=== PATIENT | male | born 1955 | race Caucasian/White ===

== ENCOUNTER → 2023-07-23 11:02 | Outpatient (REF) | payer MEDICARE, OTHER, SELFPAY ==
[2023-07-23 12:12] LABS: % Basophils 0.5 % (0-2); % Eosinophils 1.6 % (0-6); % Immature Granulocytes 0.3 % (0-0.5); % Lymphocytes 21.1 % (20.5-51.1); % Monocytes 9.6 % (1.7-9.3); % Neutrophils 66.9 % (42.2-75.2); Absolute Eosinophils 0.1 10^3/uL (0-0.7); Absolute Lymphocytes 1.3 10^3/uL (1.2-3.4); Absolute Monocytes 0.6 10^3/uL (0.1-0.6); Absolute Neutrophils 4.3 10^3/uL (1.4-6.5); Hematocrit 43.4 % (39.0-52.0); Hemoglobin 14.5 g/dL (13.0-18.0); Mean Corp Hgb Conc. 33.4 g/dL (33.0-37.0); Mean Corpuscular Volume 89.7 fL (80.0-94.0); Mean Platelet Volume 10.1 fL (7.4-10.4); Nucleated Red Blood Cells % 0 % (-); Platelet Count 192 10^3/uL (130-400); Red Blood Cell Count 4.84 10^6/uL (4.70-6.10); Red Cell Dist. Width 12.5 % (11.5-14.5); White Blood Cell Count 6.4 10^3/uL (4.8-10.8)
== END ==
LOC: REG 11:02
DX: K62.5 Hemorrhage of anus and rectum (principal)
CPT/HCPCS: 36415; 85025

== ENCOUNTER → 2023-09-03 06:29 | Day surgery (SDC) | payer MEDICARE, OTHER, SELFPAY | LOC: GI 06:29 | PROVIDERS: ATTENDING PHYSICIAN Internal Medicine Gastroenterology | DX: Z12.11 Encounter for screening for malignant neoplasm of colon (principal); K57.30 Diverticulosis of large intestine without perforation or abscess without bleeding; K83.01 Primary sclerosing cholangitis; K52.3 Indeterminate colitis; K64.0 First degree hemorrhoids; K63.89 Other specified diseases of intestine; K62.6 Ulcer of anus and rectum; K63.5 Polyp of colon; K51.40 Inflammatory polyps of colon without complications; K51.818 Other ulcerative colitis with other complication | CPT/HCPCS: 45385; 45380; 45381; 88305; 88341; 88342 ==

== ENCOUNTER → 2023-09-24 10:37 | Outpatient (REF) | payer MEDICARE, OTHER, SELFPAY ==
[2023-09-26 04:47] LABS: Calprotectin, Fecal 123 ug/g (<=49)
== END ==
LOC: REG 10:37
PROVIDERS: ATTENDING PHYSICIAN Internal Medicine Gastroenterology; FAMILY PHYSICIAN Nurse Practitioner Primary Care
DX: K51.90 Ulcerative colitis, unspecified, without complications (principal)
CPT/HCPCS: 83993

== ENCOUNTER → 2023-10-30 12:21 | Outpatient (REF) | payer MEDICARE, OTHER, SELFPAY | LOC: RAD 12:21 | PROVIDERS: ATTENDING PHYSICIAN Surgery Vascular Surgery; FAMILY PHYSICIAN Nurse Practitioner Primary Care | DX: I73.9 Peripheral vascular disease, unspecified (principal) | CPT/HCPCS: 93922; 93925; 93978 ==

== ENCOUNTER → 2023-12-02 10:38 | Outpatient (REF) | payer MEDICARE, OTHER, SELFPAY | LOC: PAVMRI 10:38 | PROVIDERS: ATTENDING PHYSICIAN Internal Medicine Gastroenterology; FAMILY PHYSICIAN Nurse Practitioner Primary Care | DX: K83.01 Primary sclerosing cholangitis (principal) | CPT/HCPCS: 74183; A9575 ==

== ENCOUNTER → 2023-12-11 11:00 | Outpatient (REF) | payer MEDICARE, OTHER, SELFPAY ==
[2023-12-11 12:20] LABS: % Basophils 0.5 % (0-2); % Eosinophils 1.1 % (0-6); % Immature Granulocytes 0.2 % (0-0.5); % Lymphocytes 17.1 % (20.5-51.1); % Monocytes 7.4 % (1.7-9.3); % Neutrophils 73.7 % (42.2-75.2); Absolute Eosinophils 0.1 10^3/uL (0-0.7); Absolute Lymphocytes 1.1 10^3/uL (1.2-3.4); Absolute Monocytes 0.5 10^3/uL (0.1-0.6); Absolute Neutrophils 4.7 10^3/uL (1.4-6.5); Hematocrit 47.3 % (39.0-52.0); Hemoglobin 16.1 g/dL (13.0-18.0); Mean Corpuscular Hgb 30.8 pg (27.0-31.0); Mean Corpuscular Volume 90.4 fL (80.0-94.0); Mean Platelet Volume 10.5 fL (7.4-10.4); Nucleated Red Blood Cells % 0 % (-); Platelet Count 224 10^3/uL (130-400); Red Blood Cell Count 5.23 10^6/uL (4.70-6.10); Red Cell Dist. Width 12.6 % (11.5-14.5); White Blood Cell Count 6.4 10^3/uL (4.8-10.8)
[2023-12-11 12:56] LABS: ALT (SGPT) 83 U/L (0-50); AST (SGOT) 68 U/L (17-59); Albumin 4.6 g/dl (3.5-5.0); Alkaline Phosphatase 246 U/L (38-126); Blood Urea Nitrogen 18 mg/dl (9-20); Calcium 9.7 mg/dl (8.4-10.2); Carbon Dioxide 21 mmol/L (22-30); Chloride 102 mmol/L (98-107); Direct Bilirubin 0.4 mg/dl (0.0-0.4); Glucose 86 mg/dl (70-99); HDL Cholesterol 71 mg/dl; LDL Cholesterol, Calculated 146 mg/dl; Potassium 4.7 mmol/L (3.5-5.1); Sodium 141 mmol/L (135-145); Total Bilirubin 1.1 mg/dl (0.2-1.3); Total Cholesterol 228 mg/dl (50-199); Total Protein 7.5 g/dl (6.3-8.2); Triglyceride 57 mg/dl (10-149); Very Low Density Lipoprotein 11 mg/dl (0-30); eGFR > 60.00
[2023-12-11 13:23] LABS: PSA, Total - Screen 3.39 ng/ml (0.0-4.0); TSH Reflex To Free T4 1.56 uIU/ml (0.47-4.68)
[2023-12-11 13:43] LABS: Vitamin B12 373 pg/ml (239-931)
[2023-12-11 14:06] LABS: Glycohemoglobin (HgbA1c) 5.4 % (4.0-5.6)
== END ==
LOC: REG 11:00
PROVIDERS: ATTENDING PHYSICIAN Internal Medicine Gastroenterology; FAMILY PHYSICIAN Nurse Practitioner Primary Care
DX: K51.90 Ulcerative colitis, unspecified, without complications (principal); I10 Essential (primary) hypertension; E78.2 Mixed hyperlipidemia; R73.03 Prediabetes; E53.8 Deficiency of other specified B group vitamins; Z12.5 Encounter for screening for malignant neoplasm of prostate; E03.8 Other specified hypothyroidism; E55.9 Vitamin D deficiency, unspecified
CPT/HCPCS: 36415; 80053; 80061; 82248; 82306; 82607; 83036; 84443; 85025; G0103

== ENCOUNTER → 2023-12-22 10:39 | Outpatient (REF) | payer MEDICARE, OTHER, SELFPAY ==
[2023-12-24 10:29] LABS: Calprotectin, Fecal 44 ug/g (<=49)
== END ==
LOC: REG 10:39
PROVIDERS: ATTENDING PHYSICIAN Internal Medicine Gastroenterology; FAMILY PHYSICIAN Nurse Practitioner Primary Care
DX: K51.90 Ulcerative colitis, unspecified, without complications (principal)
CPT/HCPCS: 83993

== ENCOUNTER → 2023-12-29 06:23 | Day surgery (SDC) | payer MEDICARE, OTHER, SELFPAY | LOC: GI 06:23 | PROVIDERS: ATTENDING PHYSICIAN Internal Medicine Gastroenterology | DX: Z12.11 Encounter for screening for malignant neoplasm of colon (principal); K51.20 Ulcerative (chronic) proctitis without complications; K62.89 Other specified diseases of anus and rectum; K62.1 Rectal polyp; K64.0 First degree hemorrhoids | CPT/HCPCS: 45331; 88305 ==

== ENCOUNTER → 2024-02-18 10:14 | Outpatient (REF) | payer MEDICARE, OTHER, SELFPAY | LOC: RAD 10:14 | PROVIDERS: ATTENDING PHYSICIAN Internal Medicine Gastroenterology | DX: R19.5 Other fecal abnormalities (principal) | CPT/HCPCS: 74022 ==

== ENCOUNTER → 2024-05-27 09:45 | Outpatient (REF) | payer MEDICARE, OTHER, SELFPAY ==
[2024-05-27 12:51] LABS: Urine Albumin 1+ (Neg - Trace); Urine Bilirubin Negative (Negative); Urine Character Cloudy (Clear); Urine Color Yellow; Urine Glucose Negative (Negative); Urine Ketone Negative (Negative); Urine Leukocyte Negative (Negative); Urine Nitrite Negative (Negative); Urine Occult Blood 3+ (Negative); Urine Urobilinogen 1+ (Neg - 1+)
[2024-05-27 13:05] LABS: Urine Bacteria Many (Negative); Urine Squamous Cell 0-2 /LPF (Few)
[2024-05-27 13:06] LABS: Urine White Cell 0-2 /HPF (0-5)
== END ==
LOC: CLAB 09:45
PROVIDERS: ATTENDING PHYSICIAN Nurse Practitioner Primary Care
DX: N50.811 Right testicular pain (principal)
CPT/HCPCS: 81003; 81015; 87086

== ENCOUNTER → 2024-05-28 10:07 | Outpatient (REF) | payer MEDICARE, OTHER, SELFPAY ==
[2024-05-28 11:22] LABS: ALT (SGPT) 46 U/L (0-50); AST (SGOT) 40 U/L (17-59); Albumin 4.2 g/dl (3.5-5.0); Alkaline Phosphatase 226 U/L (38-126); Direct Bilirubin 0.2 mg/dl (0.0-0.4); HDL Cholesterol 78 mg/dl; LDL Cholesterol, Calculated 130 mg/dl; Total Bilirubin 0.9 mg/dl (0.2-1.3); Total Cholesterol 219 mg/dl (50-199); Triglyceride 58 mg/dl (10-149); Very Low Density Lipoprotein 11 mg/dl (0-30)
== END ==
LOC: REG 10:07
PROVIDERS: ATTENDING PHYSICIAN Nurse Practitioner Primary Care
DX: N50.811 Right testicular pain (principal); E78.2 Mixed hyperlipidemia; K83.01 Primary sclerosing cholangitis
CPT/HCPCS: 36415; 80061; 80076; 87086; 87491; 87591

== ENCOUNTER 2024-06-07 06:21 | Day surgery (SDC) | payer MEDICARE, OTHER, SELFPAY | END 2024-06-07 11:40 | disposition home or self-care (01) | LOC: GI 06:21 | PROVIDERS: ATTENDING PHYSICIAN Internal Medicine Gastroenterology | DX: Z12.11 Encounter for screening for malignant neoplasm of colon (principal); D12.3 Benign neoplasm of transverse colon; K63.5 Polyp of colon; K51.00 Ulcerative (chronic) pancolitis without complications; K63.89 Other specified diseases of intestine; K57.30 Diverticulosis of large intestine without perforation or abscess without bleeding; K62.89 Other specified diseases of anus and rectum; K64.0 First degree hemorrhoids | CPT/HCPCS: 45385; 45380; 45381; 88305 ==

== ENCOUNTER → 2024-06-08 10:31 | Outpatient (REF) | payer MEDICARE, OTHER, SELFPAY | LOC: HWRAD 10:31 | PROVIDERS: ATTENDING PHYSICIAN Nurse Practitioner Primary Care | DX: R31.29 Other microscopic hematuria (principal); N50.811 Right testicular pain | CPT/HCPCS: 76770; 76870; 93976 ==

== ENCOUNTER → 2024-06-16 08:45 | Outpatient (REF) | payer MEDICARE, OTHER, SELFPAY ==
[2024-06-16 10:19] LABS: Hematocrit 43.2 % (39.0-52.0); Hemoglobin 14.3 g/dL (13.0-18.0); Mean Corp Hgb Conc. 33.1 g/dL (33.0-37.0); Mean Corpuscular Hgb 30.4 pg (27.0-31.0); Mean Corpuscular Volume 91.9 fL (80.0-94.0); Platelet Count 226 10^3/uL (130-400); Red Cell Dist. Width 13.2 % (11.5-14.5); White Blood Cell Count 5.7 10^3/uL (4.8-10.8)
[2024-06-16 11:02] LABS: ALT (SGPT) 36 U/L (0-50); AST (SGOT) 34 U/L (17-59); Albumin 4.3 g/dl (3.5-5.0); Alkaline Phosphatase 181 U/L (38-126); Blood Urea Nitrogen 19 mg/dl (9-20); Calcium 9.1 mg/dl (8.4-10.2); Carbon Dioxide 27 mmol/L (22-30); Chloride 104 mmol/L (98-107); Direct Bilirubin 0.2 mg/dl (0.0-0.4); Glucose 88 mg/dl (70-99); Sodium 138 mmol/L (135-145); Total Bilirubin 0.8 mg/dl (0.2-1.3); eGFR > 60.00
== END ==
LOC: REG 08:45
PROVIDERS: ATTENDING PHYSICIAN Internal Medicine Gastroenterology; FAMILY PHYSICIAN Nurse Practitioner Primary Care
DX: K51.90 Ulcerative colitis, unspecified, without complications (principal)
CPT/HCPCS: 36415; 80053; 82248; 85027; 86140

== ENCOUNTER → 2024-08-18 10:35 | Outpatient (REF) | payer MEDICARE, OTHER, SELFPAY ==
[2024-08-18 11:57] LABS: % Basophils 0.4 % (0-2); % Eosinophils 1.3 % (0-6); % Immature Granulocytes 0.4 % (0-0.5); % Lymphocytes 21.5 % (20.5-51.1); % Monocytes 7.1 % (1.7-9.3); % Neutrophils 69.3 % (42.2-75.2); Absolute Eosinophils 0.1 10^3/uL (0-0.7); Absolute Lymphocytes 1.2 10^3/uL (1.2-3.4); Absolute Monocytes 0.4 10^3/uL (0.1-0.6); Absolute Neutrophils 3.7 10^3/uL (1.4-6.5); Hematocrit 45.7 % (39.0-52.0); Hemoglobin 15.5 g/dL (13.0-18.0); Mean Corp Hgb Conc. 33.9 g/dL (33.0-37.0); Mean Corpuscular Hgb 29.9 pg (27.0-31.0); Mean Corpuscular Volume 88.1 fL (80.0-94.0); Mean Platelet Volume 10.7 fL (7.4-10.4); Nucleated Red Blood Cells % 0 % (-); Platelet Count 216 10^3/uL (130-400); Red Blood Cell Count 5.19 10^6/uL (4.70-6.10); Red Cell Dist. Width 12.8 % (11.5-14.5); White Blood Cell Count 5.3 10^3/uL (4.8-10.8)
[2024-08-18 13:29] LABS: ALT (SGPT) 40 U/L (0-50); AST (SGOT) 31 U/L (17-59); Albumin 4.1 g/dl (3.5-5.0); Alkaline Phosphatase 196 U/L (38-126); Blood Urea Nitrogen 17 mg/dl (9-20); Calcium 9.3 mg/dl (8.4-10.2); Carbon Dioxide 25 mmol/L (22-30); Chloride 107 mmol/L (98-107); Creatine Phosphokinase 57 U/L (55-170); Glucose 97 mg/dl (70-99); Potassium 4.6 mmol/L (3.5-5.1); Sodium 140 mmol/L (135-145); Total Bilirubin 0.8 mg/dl (0.2-1.3); Total Protein 6.9 g/dl (6.3-8.2); eGFR > 60.00
[2024-08-19 12:12] LABS: Lyme Antibody Screen, EIA Negative (Negative)
[2024-08-21 07:56] LABS: EBV-EA (D) Ab IgG 37.7 U/mL (0.0-10.9); EBV-NA IgG >600.0 U/mL (0.0-21.9); EBV-VCA IgM Antibodies <10.0 U/mL (0.0-43.9)
== END ==
LOC: REG 10:35
PROVIDERS: ATTENDING PHYSICIAN Nurse Practitioner Primary Care
DX: R53.83 Other fatigue (principal); M79.10 Myalgia, unspecified site
CPT/HCPCS: 36415; 80053; 82550; 85025; 86618; 86663; 86664; 86665

== ENCOUNTER → 2024-08-27 08:56 | Outpatient (REF) | payer MEDICARE, OTHER, SELFPAY | LOC: HWRCS 08:56 | PROVIDERS: ATTENDING PHYSICIAN Nurse Practitioner Primary Care | DX: R01.1 Cardiac murmur, unspecified (principal); I10 Essential (primary) hypertension | CPT/HCPCS: 93306 ==

== ENCOUNTER → 2024-09-08 09:17 | Outpatient (REF) | payer MEDICARE, OTHER, SELFPAY | LOC: HWRAD 09:17 | PROVIDERS: ATTENDING PHYSICIAN Nurse Practitioner Primary Care | DX: E78.2 Mixed hyperlipidemia (principal); I10 Essential (primary) hypertension | CPT/HCPCS: 75571 ==

== ENCOUNTER → 2024-11-15 06:49 | Outpatient (REF) | payer MEDICARE, OTHER, SELFPAY | LOC: RAD 06:49 | PROVIDERS: ATTENDING PHYSICIAN Surgery Vascular Surgery; FAMILY PHYSICIAN Nurse Practitioner Primary Care | DX: I73.9 Peripheral vascular disease, unspecified (principal) | CPT/HCPCS: 93922; 93978 ==

== ENCOUNTER → 2024-11-16 10:21 | Outpatient (REF) | payer MEDICARE, OTHER, SELFPAY ==
[2024-11-16 12:33] LABS: Blood Urea Nitrogen 15 mg/dl (9-20); Calcium 8.6 mg/dl (8.4-10.2); Carbon Dioxide 26 mmol/L (22-30); Chloride 107 mmol/L (98-107); Glucose 90 mg/dl (70-99); Potassium 4.8 mmol/L (3.5-5.1); Sodium 140 mmol/L (135-145); eGFR > 60.00
== END ==
LOC: REG 10:21
PROVIDERS: ATTENDING PHYSICIAN Surgery Vascular Surgery; FAMILY PHYSICIAN Nurse Practitioner Primary Care
DX: I73.9 Peripheral vascular disease, unspecified (principal)
CPT/HCPCS: 36415; 80048

== ENCOUNTER → 2024-11-22 16:39 | Outpatient (REF) | payer MEDICARE, OTHER, SELFPAY | LOC: RAD 16:39 | PROVIDERS: ATTENDING PHYSICIAN Surgery Vascular Surgery; FAMILY PHYSICIAN Nurse Practitioner Primary Care | DX: I73.9 Peripheral vascular disease, unspecified (principal) | CPT/HCPCS: 75635; Q9967 ==

== ENCOUNTER 2024-12-15 20:46 | Inpatient (IN) | payer MEDICARE, OTHER, SELFPAY ==
[2024-12-15] VITALS (10 sets, daily range): BP systolic 125–186; BP diastolic 68–107; BMI 33.3; BMI 32.1
--- NOTE | 2024-12-15 17:09 | ED.GENMED ---
History of Present Illness
General
Chief Complaint: Abdominal Pain
Source: patient
Exam Limitations: none
Time Seen by Provider: 12/15/24 16:47
Nursing documentation reviewed up to this point in time: agreed with
History of Present Illness
History of Present Illness:
Patient to ED with complaint of RUQ abd pain. States pain started at 3AM and continues to worsen. Reports history of gallstones. Denies fever/chills. +nausea. 1 episode of vomiting this afternoon. Brought to ED by spouse for eval.
Past History
Past History
ED Past Medical History: HTN, Psychiatric (Bipolar) and Other (Chronic pain, Colitis/gastritis, Ulcers, Diverticulosis, peripheral artery disease)
ED Past Surgical History: Orthopedic and Other (Bifemoral bypass graft lower extremities, 2 patches replaced to to tares, Hernia repair X 2)
Social History
Tobacco: Non-smoker
Alcohol: Occasional
Drug: None
Personal:
Living: with family
Employment: Not employed
Family History
Family History: Adopted
Review of Systems
Review of Systems
Allergies reviewed?: Yes
All Other Systems: ROS reviewed and negative except as documented in HPI and ROS
Constitutional: Reports no symptoms
EENT: Reports no symptoms
Respiratory: Reports no symptoms
Cardiac: Reports no symptoms
ABD/GI: Reports abdominal pain, nausea and vomiting
: Reports no symptoms
Musculoskeletal: Reports no symptoms
Skin: Reports no symptoms
Neurological: Reports no symptoms
Psychiatric: Reports no symptoms
Phy Exam
General Physical Exam
General Presentation: moderate distress
General age: appears stated age
General Skin: warm and dry
General Habitus: normal
General Mental: alert
Cardiovascular Exam
Cardiovascular Exam: regular rate/rhythm and no edema
Pulmonary Exam
Pulmonary Exam: lungs clear and no respiratory distress
Gastrointestinal Exam
Gastrointestinal Exam: normal bowel sounds, distended and guarding
Palpation: left upper quadrant: Mild tenderness, left lower quadrant: No tenderness, right upper quadrant: Severe tenderness and right lower quadrant: Moderate tenderness
Musculoskeletal Exam
Musculoskeletal Exam: full ROM and neuro vasc intact
Skin Exam
Skin Exam: normal color, warm/dry and no rash
Psychiatric Exam
Psychiatric Exam: normal mood/affect
Course
Orders/Labs/Results
Orders:
Orders
12/15/24 16:57
Ketorolac [Toradol] 30 mg IV NOW STA
12/15/24 16:58
0.9% Sodium Chloride 1000 ml [Nss] 1,000 ml IV BOLUS
12/15/24 17:00
US Abdomen Complete/Upper Urgent
Comment:
Reason For Exam: RUQ pain
12/15/24 17:20
Complete Blood Count/With Diff Urgent
12/15/24 17:41
Urinalysis Reflex To Culture Urgent
Date Specimen was Collected: 12/15/24
Time Specimen was Collected: 17:39
Urine Microscopic Reflex Cult Urgent
12/15/24 17:58
HYDROmorphone [Dilaudid] 0.5 mg IV NOW STA
12/15/24 17:59
HYDROmorphone [Dilaudid] 0.5 mg .ROUTE .K-MED ONE
12/15/24 18:01
Comprehensive Metabolic Panel Urgent
Lipase Urgent
12/15/24 19:49
Cefepime HCl [Maxipime] 2,000 mg IV NOW STA
MetroNIDAZOLE 500 MG/100 ML [Flagyl 500 mg] 100 ml IV NOW
12/15/24 20:03
Consult Gastroenterology [GASTROINTESTINAL CONSULT] Urgent
Consulting Provider: Trevin Messer
Was physician already notified: Yes
Consult Surgery [SURGICAL CONSULT] Urgent
Consulting Provider: Varun Jean Baptiste
Was physician already notified: Yes
09/10/25 20:22
Ketorolac [Toradol] 15 mg IV NOW STA
12/15/24 20:23
Admit/Transfer Patient As Directed
Co-Sign Provider:
Level of Care: Inpatient admission
Assign to:: Telemetry
Physician / Group: Michael
Diagnosis: Primary Sclerosing Cholangitis / Cholelithiasis
Reason for Telemetry: Chest Pain syndromes
Date to Stop Telemetry: 12/17/24
Time to Stop Telemetry: 11:00
Reason for Hospitalization: Primary Sclerosing Cholangitis / Cholelithiasis
Expected length of stay greater than two midnights?: Yes
ELOS- Estimated Length of Stay in days: 2
I certify the patient meets the requirements for IP care: Yes
EKG [Electrocardiogram (*1)] Urgent
Reason for Study: Chest Pain
PRN Pain Medication Management As Directed
May give lesser potent ordered pain med per pt: Yes
preference::
Protocol:: Medication orders for pain may be administered in a
manner that supports deferring to patient preference
when the pt is:
- Requesting an ordered lesser potent pain medication.
Least to most potent pain medications are defined
as: acetaminophen < NSAID < tramadol < opioids
(morphine, oxycodone, hydromorphone).
- Requesting a lesser dose of the same medication IF
ORDERED.
- Requesting a less intrusive route of administration
if both routes are prescribed by the provider (PO <
IV).
12/15/24 20:24
Code Status As Directed
Resuscitation Status: Full Code
12/15/24 21:16
Troponin I Urgent
12/17/24 11:00
DC Protocol for Telemetry ONCE
Abnormal Lab Results
12/15/24 12/15/24 12/15/24
17:20 17:41 18:01
WBC 13.3 H 10^3/uL
(4.8-10.8)
Absolute Neuts (auto) 11.7 H 10^3/uL
(1.4-6.5)
Absolute Lymphs (auto) 0.8 L 10^3/uL
(1.2-3.4)
Absolute Monos (auto) 0.8 H 10^3/uL
(0.1-0.6)
Neutrophils % 87.8 H %
(42.2-75.2)
Lymphocytes % 5.7 L %
(20.5-51.1)
Sodium 133 L mmol/L
(135-145)
Glucose 113 H mg/dl
(70-99)
Calcium 10.3 H mg/dl
(8.4-10.2)
Alkaline Phosphatase 187 H U/L
(38-126)
Urine Ketones 3+ A
(Negative)
Ur Occult Blood Reflex 4+ A
(Negative)
Urine RBC 26-30 A /HPF
(0-2)
Urine Bacteria (Reflex) Few A
(Negative)
12/15/24 17:20
12/15/24 18:01
Vital Signs
Initial and Last Documented VS:
Initial Vital Signs
Temp Pulse Resp BP Pulse Ox
98.4 F 99 20 186/102 98
12/15/24 16:39 12/15/24 16:39 12/15/24 16:39 12/15/24 16:39 12/15/24 16:39
Last Documented Vital Signs
Temp Pulse Resp BP Pulse Ox
98.4 F 94 25 139/83 93
12/15/24 16:39 12/15/24 21:15 12/15/24 21:15 12/15/24 21:00 12/15/24 21:15
*Radiology
Radiology exam reviewed: radiology read reviewed
*Pulse Oximetry
SaO2: 98
Oxygen Mode of Delivery: Room air
Patient hypoxic: no
*Critical Care Note
Total Time (30-74mins, 75-104mins- exclusive of procedures): Not Applicable
Update Note
Update Note:
Patient to eD with severe RUQ abd. pain, started at 3AM. Known history of gallstones. US confirms gallstones, prominent gallbladder and or sludge with mild wallthickening. Mild CBD dilatation and mild intrahepatic biliary tract dilatation. He
remains afebrile. WBC 13.3, tbili normal. WIll admit to hospitalist price. ANtibiotics started in ED. Consult placed to Dr. Messer, Dr. Jean Baptiste
ED Attending Note
-
Portions of this chart may have been created with voice recognition software.� Occasional wrong word or��sound alike� substitutions may have occurred due to the inherent limitations of voice recognition software.
Discharge Plan
Departure
Patient Disposition: Admit
Date of Disposition: 12/15/24
Time of Disposition: 19:56
Presentation/result/management discussed w/ accepting MD/DO: Hospitalist
Patient with high blood pressure during this ER visit?: No
Condition: Fair
Covid-19: Not Applicable
Discharge Problem:
Choledocholithiasis
Interventions
Interventions:
*Risk Screen - Suicide Last Done: 12/15/24 17:23
*General Assessment Last Done: 12/15/24 16:39
*Neglect/Abuse Screening Last Done: 12/15/24 17:23
*ED- Fall Risk Assessment Last Done: 12/15/24 17:22
*ED COVID-19 Vaccine History Last Done: 12/15/24 17:22
*Nursing Disposition Last Done: 12/15/24 21:03
NW-Xqdder-Szdbpjsdjj Assessment Last Done: 12/15/24 17:22
Discharge Date and Time
Discharge Date/Time: 12/15/24 21:28
[2024-12-15] MEDS: NSS 1000 IV (17:20)
[2024-12-15] MEDS: TORADOL 30 MG IV (17:21)
[2024-12-15 17:27] LABS: Hematocrit 45.2 % (39.0-52.0); Hemoglobin 15.5 g/dL (13.0-18.0); Mean Corp Hgb Conc. 34.3 g/dL (33.0-37.0); Mean Corpuscular Volume 89.5 fL (80.0-94.0); Nucleated Red Blood Cells % 0 % (-); Platelet Count 210 10^3/uL (130-400); Red Cell Dist. Width 12.6 % (11.5-14.5)
[2024-12-15 17:48] LABS: Urine Character Clear (Clear)
[2024-12-15 17:55] LABS: Urine Red Blood Cell 26-30 /HPF (0-2); Urine Squamous Cell 0-2 /LPF (Few); Urine White Cell 0-2 /HPF (0-5)
[2024-12-15] MEDS: DILAUDID 0.5 MG IV (18:02)
[2024-12-15 18:30] LABS: ALT (SGPT) 38 U/L (0-50); AST (SGOT) 30 U/L (17-59); Albumin 4.3 g/dl (3.5-5.0); Alkaline Phosphatase 187 U/L (38-126); Blood Urea Nitrogen 13 mg/dl (9-20); Calcium 10.3 mg/dl (8.4-10.2); Carbon Dioxide 26 mmol/L (22-30); Chloride 101 mmol/L (98-107); Estimated Creatinine Clearance 88 ml/min; Glucose 113 mg/dl (70-99); Lipase 54 U/L (23-300); Potassium 4.0 mmol/L (3.5-5.1); Sodium 133 mmol/L (135-145); Total Protein 7.2 g/dl (6.3-8.2); eGFR > 60.00
[2024-12-15] MEDS: MAXIPIME 2000 MG IV (19:50)
[2024-12-15] MEDS: FLAGYL 500 MG 100 IV (19:50)
--- NOTE | 2024-12-15 20:27 | HPS.HSE ---
Family Physician
-
Family Physician: Mary Victoria
Chief Complaint
-
Abd Pain
History of Present Illness
Patient is a 69y M with PMH significant for ulcerative colitis, primary sclerosing cholangitis and bipolar depression who presents to ED complaining of abdominal pain. Patient states that he woke at 3 AM today with RUQ abdominal pain. He took
Gas-X and Tums at home with no improvement in his symptoms. He developed nausea and 'coughing' or 'spitting' up bilious material later in the day. He reports prior history of similar symptoms several years ago due to 'gallstone'. Patient denies
any fevers / chills. No recent medication changes. No changes in bowel habits.
Medical History
Past Medical History
Past Medical History: Reports Other
Additional Past Medical History:
Hypertension
Primary Sclerosing Cholangitis
Ulcerative Colitis
Bipolar Depression
History of Opioid Dependence
Past Surgical History: Reports Other
Social History
Tobacco: Vaping
Alcohol: Occasional (About 4 times per year / holidays.)
Drug: Marijuana
Family History
Family History: Not pertinent
Allergies / Home Medications
Allergies reflects when Allergies were last updated in [employer].
Home Medications with original date entered in [employer]
Allergy/Medication List:
Allergies
Allergy/AdvReac Type Severity Reaction Status Date / Time
alcohol Allergy Unknown Verified 12/15/24 16:39
atorvastatin Allergy Rash Verified 12/15/24 16:39
Cephalosporins Allergy Unknown Verified 12/15/24 16:39
citalopram Allergy Rash Verified 12/15/24 16:39
egg Allergy Unknown Verified 12/15/24 16:39
escitalopram Allergy Rash Verified 12/15/24 16:39
Penicillins Allergy HOSPITALIZED Verified 12/15/24 16:39
BY
REACTION
CHILD
CLASS
Allergy:
8:12.16 - P
Gzhpclc-UPH-FoP Reductase Allergy Rash Verified 12/15/24 16:39
Inhibitor (Hfqeveo-Pva-Ers
Reductase Inhibitor)
Home Medications
mirtazapine 15 mg tablet (Remeron) 7.5 mg PO HS Sleep 04/26/22
olanzapine 5 mg tablet 5 mg PO HS Mental Health/Anxiety 04/26/22
trazodone 100 mg tablet 100 mg PO HS Sleep 04/26/22
mesalamine 1.2 gram tablet,delayed release 2.4 g PO HS 12/15/24
sennosides 8.6 mg tablet (senna) 8.6 mg PO DAILYPRN PRN constipation 12/15/24
Review of Systems
-
History Source: Patient
A 12 point ROS was completed and negative except as noted: Yes
Constitutional: Denies Fever or Chills
Respiratory: Denies Cough or Trouble Breathing
Cardiac: Denies Chest Pain or Palpitations
Abdomen/GI: Reports Abdominal Pain, Nausea and Vomiting; Denies Diarrhea, Constipated, Bloody Stools, Black Stools or Anorexia
: Denies Dysuria or Frequency
Skin: Denies Itching
Neurological: Denies Dizzy or Headache
Psych: Denies Depression or Anxiety
Physical Exam
Vital Signs
Vital Signs
Temp Pulse Resp BP Pulse Ox
98.4 F 98 21 132/68 95
12/15/24 16:39 12/15/24 20:15 12/15/24 20:15 12/15/24 20:00 12/15/24 20:15
Physical Exam
General: Other (69y M in no acute distress.)
HEENT: Moist mucous membranes and PERRLA
Respiratory: Clear; No Wheezes, Rales or Rhonchi
Cardiac: S1/S2, Regular Rhythm and Murmur (II/ AGNES)
GI: Soft, Non Distended, Normal Bowel Sounds and Other (Pos RUQ tenderness. No rebound / guarding.)
Musculoskeletal: No Clubbing, No Cyanosis and No Edema
Neuro: AO x 3
Laboratory Results
-
12/15/24 17:20
12/15/24 18:
Laboratory Results
Total Bilirubin 1.1 mg/dl (0.2-1.3) 12/15/24 18:01
AST 30 U/L (17-59) 12/15/24 18:
ALT 38 U/L (0-50) 12/15/24 18:
Alkaline Phosphatase 187 U/L (38-126) H 12/15/24 18:
Lipase 54 U/L (23-300) 12/15/24 18:
Impression/Plan
-
A/P: Patient is a 69y M with PMH significant for primary sclerosing cholangitis who presents to ED complaining of RUQ abdominal pain.
RUQ Abdominal Pain
Cholelithiasis +/- Cholecystitis
Primary Sclerosing Cholangitis
- Admit for further evaluation and treatment.
- RUQ pain similar to prior episode of symptomatic choledocholithiasis.
- Underwent ERCP with CBD dilation at that time (2022). Developed post-ERCP pancreatitis.
- US today shows stone / sludge within the gallbladder. Mild wall thickening. Mild CBD / intrahepatic duct dilation (prob due to PSC).
- NPO, IVF support.
- Pain control - try to use non-narcotic medications given prior h/o dependence.
- GI evaluation for additional recommendation / possible repeat ERCP.
- Continue abx for now for possible infection. Levaquin / Flagyl with PCN +/- cephalosporin allergies listed.
- Follow for any new / worsening symptoms.
Ulcerative Colitis
- Stable. Hold mesalamine acutely. Monitor for changes in bowel habits.
Bipolar Depression
- Stable. Continue current psychotropic med regimen without changes.
Benign Hypertension
- Not on any medications chronically. BP elevated in the ED - ? due to pain.
- IV Hydralazine for now for very high BP.
- Follow measurements and consider addition of antihypertensive agent if indicated.
DVT Prophylaxis: SCDs
Code Status: Full
[2024-12-15] MEDS: TORADOL 15 MG IV (20:35)
--- NOTE | 2024-12-15 21:45 | PTCARENOTE ---
Pt transported from ED to 3W via stretcher. Pt independent from stretcher to bed, AAOX3, vitals stable. Pt complained of 8/10 RUQ abdominal pain, placed on TELE #[id number], oriented to room and call antonio within reach. Pleasant and cooperative.
[2024-12-15] MEDS: LR 1000 IV (21:58)
[2024-12-15] MEDS: ZYPREXA 5 MG PO (21:59)
[2024-12-15] MEDS: DESYREL 100 MG PO (21:59)
[2024-12-15] MEDS: LEVAQUIN 100 IV (21:59)
[2024-12-15] MEDS: REMERON 7.5 MG PO (21:59)
[2024-12-15 22:03] LABS: Troponin I < 0.012 ng/ml
[2024-12-16] VITALS (11 sets, daily range): BP systolic 127–162; BP diastolic 76–96
[2024-12-16] MEDS: TORADOL 15 MG IV ×4 (01:05→21:48)
[2024-12-16] MEDS: FLAGYL 500 MG 100 IV ×3 (04:30→20:22)
[2024-12-16] MEDS: LR 1000 IV ×2 (05:15→20:25)
[2024-12-16 05:35] LABS: Hematocrit 39.6 % (39.0-52.0); Hemoglobin 13.8 g/dL (13.0-18.0); Mean Corp Hgb Conc. 34.8 g/dL (33.0-37.0); Mean Corpuscular Volume 87.6 fL (80.0-94.0); Platelet Count 164 10^3/uL (130-400); Red Cell Dist. Width 12.6 % (11.5-14.5)
[2024-12-16 06:16] LABS: Troponin I < 0.012 ng/ml
[2024-12-16 06:17] LABS: ALT (SGPT) 34 U/L (0-50); AST (SGOT) 27 U/L (17-59); Albumin 3.6 g/dl (3.5-5.0); Alkaline Phosphatase 150 U/L (38-126); Blood Urea Nitrogen 12 mg/dl (9-20); Calcium 9.6 mg/dl (8.4-10.2); Carbon Dioxide 27 mmol/L (22-30); Chloride 101 mmol/L (98-107); Estimated Creatinine Clearance 80 ml/min; Glucose 114 mg/dl (70-99); Potassium 4.3 mmol/L (3.5-5.1); Sodium 133 mmol/L (135-145); Total Protein 6.2 g/dl (6.3-8.2); eGFR > 60.00
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
[2024-12-16] MEDS: PROTONIX IV 40 MG IV (08:15)
[2024-12-16] MEDS: NSS (PRESERVATIVE FREE) 10 ML IV (08:15)
[2024-12-16 09:52] LABS: Troponin I < 0.012 ng/ml
--- NOTE | 2024-12-16 09:59 | CON.GS ---
Addendum entered and electronically signed by Varun Jean Baptiste MD 12/16/24 10:49:
I was physically present and personally performed the handy portions of the surgical evaluation and/or procedure with the resident. I discussed the findings, reviewed the resident�s note, and confirmed the medical decision-making. I provided direct
supervision as required and agree with the assessment and plan as documented with the following additions/corrections:
Patient seen and examined.
69-year-old with medical history notable for ulcerative colitis and primary sclerosing cholangitis with previously having undergone ERCP and dilation of a common hepatic duct biliary stricture in 2022.
He is now admitted with the acute onset of recurrent bout of right upper quadrant abdominal pain radiating towards the back and epigastrium. He has had multiple recurrent episodes similar to this over the past few months and was in the process of
having outpatient GI workup with Dr. Jauregui. The plan was for an MRCP.
He presented secondary to the acuteness of his pain which has been worse than his more mild episodes. They are typically triggered by oily/buttery foods.
Patient's past abdominal surgical history is notable for having undergone an aortobifemoral bypass in 2 large open incisional hernia repairs with mesh.
AFVSS
NAD AAO x 3
ABD: Soft, nondistended, tenderness to palpation in the right upper quadrant. No rebound rigidity or guarding. Negative Posey sign. Large laparotomy surgical scar. No detectable hernia recurrence.
Ultrasound abdomen with prominent gallbladder containing predominantly sludge, no shadowing stones. Mild biliary ductal dilation.
Assessment/plan: 69-year-old male with known history of ulcerative colitis and primary sclerosing cholangitis and previous biliary stricture presenting with right upper quadrant pain
Recommend further diagnostic evaluations with MRI/MRCP as biliary type pain may be due to either intrinsic biliary ductal disease such as stenosis or gallbladder pathology.
Pending MRI results further surgical recommendations will be advised.
Original Note:
Consultation
-
Date/Time Consultation Performed: 12/16/2024
Performing Provider: Varun Jean Baptiste
Medical History
-
Chief Complaint: RUQ pain
History of Present Illness:
Patient is a 69-year-old male PMH of ulcerative colitis, primary sclerosing cholangitis, HTN, bipolar disorder, opioid use disorder presenting with RUQ abdominal pain. Patient started having abdominal pain 2 days ago, but it has worsened in
severity. Patient awoke at 3 AM with the pain and decided to come to the ED. Patient describes the pain as right sided, sharp, radiating throughout the abdomen, associated with N/V and makes it difficult to breathe. Patient took Gas-X with no
relief. Patient states that he has been having some milder RUQ pain after eating for a couple months. Of note in 2022 patient was found to have a single biliary stricture in common hepatic duct on ERCP, which improved improved with balloon
dilation. Patient then had post ERCP pancreatitis. Patient states that his current pain feels similar to the pain he experienced in 2022. In the ED, patient had a abdominal ultrasound which showed relatively prominent gallbladder containing
stones and/or sludge with mild wall thickening and mild common bile duct dilation. Today WBC 11.2, T. bili 1.7. Patient said that his pain is now better well-managed now that is receiving pain medication and rates it a 7 out of 10 on the pain
scale. Patient denies all other ROS.
Of note patient has a history of abdominal surgeries including a bifemoral bypass and 2 hernia repairs.
Past Medical History
Past Medical History: Psychiatric (Bipolar disorder) and Other (Ulcerative colitis, primary sclerosing cholangitis)
Past Surgical History: Hernia Repair and Other (Bifemoral bypass)
Allergies / Home Medications
Allergy/AdvReac Type Severity Reaction Status Date / Time
alcohol Allergy Unknown Verified 12/15/24 16:39
atorvastatin Allergy Rash Verified 12/15/24 16:39
Cephalosporins Allergy Unknown Verified 12/15/24 16:39
citalopram Allergy Rash Verified 12/15/24 16:39
egg Allergy Unknown Verified 12/15/24 16:39
escitalopram Allergy Rash Verified 12/15/24 16:39
Penicillins Allergy HOSPITALIZED Verified 12/15/24 16:39
BY
REACTION
CHILD
CLASS
Allergy:
8:12.16 - P
Zszmgcj-ZAX-UfV Reductase Allergy Rash Verified 12/15/24 16:39
Inhibitor (Yyuyxkr-Gif-Dsy
Reductase Inhibitor)
�Medication �Instructions �Recorded �Confirmed �Type
mirtazapine 15 mg tablet (Remeron) 7.5 mg PO HS Sleep 04/26/22 12/15/24 History
olanzapine 5 mg tablet 5 mg PO HS Mental Health/Anxiety 04/26/22 12/15/24 History
trazodone 100 mg tablet 100 mg PO HS Sleep 04/26/22 12/15/24 History
mesalamine 1.2 gram tablet,delayed 2.4 g PO HS 12/15/24 12/15/24 History
release
sennosides 8.6 mg tablet (senna) 8.6 mg PO DAILYPRN PRN constipation 12/15/24 12/15/24 History
Review of Systems
-
History Source: Patient
All other systems: Negative unless noted
Constitutional: No Symptoms
EENT: No Symptoms
Respiratory: Other (Pain with deep inspiration d/t abdominal pain and distention)
Cardiac: No Symptoms
Abdomen/GI: Abdominal Pain (Right UQ and right LQ), Nausea, Vomiting and Constipated
: No Symptoms
Musculoskeletal: No Symptoms
Skin: No Symptoms
Neurological: No Symptoms
Endocrine: No Symptoms
Hematologic/Lymphatic: No Symptoms
A 10 point review of systems was completed, and was negative except as per HPI.
Physical Exam
Vital Signs
Temp Pulse Resp BP Pulse Ox
97.8 F 98 17 154/96 98
12/16/24 07:24 12/16/24 07:24 12/16/24 07:24 12/16/24 07:24 12/16/24 07:24
12/15/24 12/16/24 12/17/24
06:59 06:59 06:59
Actual Weight 95.617 kg
Body Mass Index (BMI) 32.1
Lab Results
12/16/24 05:21
12/16/24 05:21
WBC 11.2 10^3/uL (4.8-10.8) H 12/16/24 05:21
Hgb 13.8 g/dL (13.0-18.0) 12/16/24 05:21
Hct 39.6 % (39.0-52.0) 12/16/24 05:21
Plt Count 164 10^3/uL (130-400) D 12/16/24 05:21
Abs Immat Gran (auto) 0.0 10^3/uL (0-0.05) 12/15/24 17:20
Neutrophils % 87.8 % (42.2-75.2) H 12/15/24 17:20
Physical Exam
General: Well Developed, Well Nourished and No Apparent Distress
GI: Tender (RUQ and RLQ), Distended and Other (Previous surgical scars noted)
Skin: Warm and Dry
Neuro: AO x 3
Psych: Calm
Data Reviewed
-
Ultrasound: Image Personally Visualized and interpreted and Discussed with Physician
Assessment / Plan
-
Patient is a 69-year-old male PMH ulcerative colitis, primary sclerosing cholangitis presenting with RUQ abdominal pain.
Assessment
Acute cholecystitis versus biliary stricture/obstruction
H/o single biliary stricture in common hepatic duct, ERCP with CBD dilation 2022. Developed post ERCP pancreatitis.
Leukocytosis WBC 11.2
T. bili 1.7 mg/dl
Plan
Will order MRI abdomen with MRCP
NPO/IVF
--- NOTE | 2024-12-16 12:24 | W.PN.HOSP.TC ---
Today's Communication/Plan
-
Monitor vital signs and see plan
MRI
GI and surgery evaluation
Pain control
Hydralazine as needed
cw abx
Assessment / Plan
Assessment / Plan
General: Other (69y M in no acute distress.)
HEENT: Moist mucous membranes and PERRLA
Respiratory: Clear; No Wheezes, Rales or Rhonchi
Cardiac: S1/S2, Regular Rhythm and Murmur (II/ AGNES)
GI: Soft, Non Distended, Normal Bowel Sounds and Other (Pos RUQ tenderness)
Musculoskeletal: No Edema
Neuro: AO x 3
RUQ Abdominal Pain
Cholelithiasis +/- Cholecystitis
Primary Sclerosing Cholangitis
could also be 2/2 to possible stricture
check MRI
Surgery and GI following
- RUQ pain similar to prior episode of symptomatic choledocholithiasis.
- Underwent ERCP with CBD dilation at that time (2022). Developed post-ERCP pancreatitis.
- US today shows stone / sludge within the gallbladder. Mild wall thickening. Mild CBD / intrahepatic duct dilation (prob due to PSC).
- NPO, IVF support.
- Pain control - try to use non-narcotic medications given prior h/o dependence.
- Continue abx for now for possible infection. Levaquin / Flagyl with PCN +/- cephalosporin allergies listed.
Hyponatremia
Monitor
Ulcerative Colitis
- Stable. Hold mesalamine acutely. Monitor for changes in bowel habits.
Bipolar Depression
- Stable. Continue current psychotropic med regimen without changes.
Benign Hypertension
- Not on any medications chronically. BP elevated in the ED - ? due to pain.
- IV Hydralazine prn for now for very high BP.
DVT Prophylaxis: SCDs
Code Status: Full
I spent a total of 52 minutes with the patient or on the floor. More than 50% of this time involved counseling and coordination of care.
Anticipated Discharge: 24 - 48 hours
Subjective/Interval History
-
Date of Service: December 16, 2024
denies nausea
Objective Data
-
Labs:
Laboratory Results
12/16/24
05:21
WBC 11.2 H
Hgb 13.8
Hct 39.6
Plt Count 164 D
Sodium 133 L
Potassium 4.3
Chloride 101
Carbon Dioxide 27
BUN 12
Creatinine 1.0
Glucose 114 H
Calcium 9.6
Total Bilirubin 1.7 H
AST 27
ALT 34
Alkaline Phosphatase 150 H
Vital Signs:
Vital Signs
Temp Pulse Resp BP Pulse Ox
97.9 F 90 16 162/89 97
12/16/24 10:46 12/16/24 10:46 12/16/24 10:46 12/16/24 10:46 12/16/24 10:46
[2024-12-16] MEDS: TYLENOL 650 MG PO (12:49)
--- NOTE | 2024-12-16 15:36 | W.PN.UPDATE ---
Addendum entered and electronically signed by JEREMÍAS Villeda 12/16/24 17:01:
PT also with noted post ERCP pancreatitis in past. Aware of risk with repeat procedure.
Original Note:
Update Note
Progress Note Update
MRI reviewed with Dr. Jauregui, Dr. Jean Baptiste, Dr. Messer, pt and family -- plan for EUS/ERCP with possible spyglass today. Cont NPO. All questions answered. Updated nursing staff
12/16/24 MRI with MRCP
IMPRESSION: No gallstones are identified by MRI.
There is evidence for gallbladder wall thickening, especially involving the medial aspect of the gallbladder wall. As described above, findings raise concern for a small focal area of contained gallbladder perforation. There is edema within the
adjacent fat, adjacent to the first and second portions of the duodenum and medial to the gallbladder, suggesting reactive edema.
Findings of primary sclerosing cholangitis as described.
Findings of primary sclerosing cholangitis, including long contiguous segment of severe narrowing involving the entire common bile duct and most of the common hepatic duct.
Small amount of free fluid in the right upper quadrant adjacent to the liver.
[2024-12-16 17:19] LABS: INR 1.18; PT 15.6 Sec (11.4-14.6)
--- NOTE | 2024-12-16 17:35 | CM ---
Alert awake oriented patient who lives with his Bailee in a 2 story home with 2 steps to enter and 15 steps to bed and bathroom. He is independent in driving and all activities of daily living.
Per MD, plan for EUS/ERCP with possible spyglass today.
Watch for VN needs; He has used [facility] in the past.
Pharmacy: [facility] [address]
PCP: Mary Victoria
PLAN Home with no needs
--- NOTE | 2024-12-16 19:42 | W.PN.UPDATE ---
Update Note
Progress Note Update
EUS and ERCP performed. EUS showed thickened distal CBD and dilated left hepatic duct w/o stone. ERCP also showed small wispy CBD, left hepatic ductal dilation, both of which when compared with cholangiogram from 2022, appears overall stable
without obvious increase in dilation. cystic duct/GB did not opacify with contrast injection. Cholangioscopy was attempted to further evaluate his biliary duct/stricture, however the instrument failed and it was aborted. brushing cytology from
[facility] taken, 1 biliary stent placed. Given his abdo pain, leukocytosis, MRI findings and that cystic duct/GB did not opacify during cholangiogram, recommend HIDA to eval for cholecystitis.
[2024-12-16] MEDS: DESYREL 100 MG PO (21:39)
[2024-12-16] MEDS: REMERON 7.5 MG PO (21:39)
[2024-12-16] MEDS: ZYPREXA 5 MG PO (21:39)
[2024-12-16] MEDS: LEVAQUIN 100 IV (21:40)
[2024-12-16] MEDS: MELATONIN 3 MG PO (22:21)
[2024-12-17] VITALS (13 sets, daily range): BP systolic 0–148; BP diastolic 60–88
[2024-12-17] MEDS: FLAGYL 500 MG 100 IV ×3 (03:03→20:43)
[2024-12-17] MEDS: TORADOL 15 MG IV ×2 (03:55→09:58)
[2024-12-17] MEDS: LR 1000 IV ×2 (08:10→18:29)
[2024-12-17] MEDS: TYLENOL 650 MG PO (08:10)
[2024-12-17] MEDS: NSS (PRESERVATIVE FREE) 10 ML IV (08:10)
[2024-12-17] MEDS: PROTONIX IV 40 MG IV (08:11)
[2024-12-17 08:25] LABS: Hematocrit 38.7 % (39.0-52.0); Hemoglobin 13.1 g/dL (13.0-18.0); Mean Corp Hgb Conc. 33.9 g/dL (33.0-37.0); Mean Corpuscular Volume 89.2 fL (80.0-94.0); Nucleated Red Blood Cells % 0 % (-); Platelet Count 168 10^3/uL (130-400); Red Cell Dist. Width 12.8 % (11.5-14.5)
[2024-12-17 08:52] LABS: ALT (SGPT) 30 U/L (0-50); AST (SGOT) 23 U/L (17-59); Albumin 3.5 g/dl (3.5-5.0); Alkaline Phosphatase 141 U/L (38-126); Blood Urea Nitrogen 19 mg/dl (9-20); Calcium 8.5 mg/dl (8.4-10.2); Carbon Dioxide 23 mmol/L (22-30); Chloride 103 mmol/L (98-107); Estimated Creatinine Clearance 80 ml/min; Glucose 134 mg/dl (70-99); Potassium 4.1 mmol/L (3.5-5.1); Sodium 135 mmol/L (135-145); Total Protein 6.0 g/dl (6.3-8.2); eGFR > 60.00
--- NOTE | 2024-12-17 11:53 | PTCARENOTE ---
Pt c/o increased bloating. Abdomen appears increasingly distended. MD made aware.
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
--- NOTE | 2024-12-17 12:48 | W.PN.HOSP.TC ---
Today's Communication/Plan
-
Monitor vitals
See plan
HIDA
Surgery to speak to [facility] to see if patient can go downtown for further management
NPO for now
pain control
abx
Assessment / Plan
Assessment / Plan
General: Other (69y M in no acute distress.)
HEENT: Moist mucous membranes and PERRLA
Respiratory: Clear; No Wheezes, Rales or Rhonchi
Cardiac: S1/S2, Regular Rhythm and Murmur (II/ AGNES)
GI: Soft, Non Distended, Normal Bowel Sounds and Other (Pos RUQ tenderness)
Musculoskeletal: No Edema
Neuro: AO x 3
RUQ Abdominal Pain
Cholelithiasis +/- Cholecystitis
Primary Sclerosing Cholangitis
could also be 2/2 to possible stricture
check MRI
Surgery and GI following
- RUQ pain similar to prior episode of symptomatic choledocholithiasis.
- Underwent ERCP with CBD dilation at that time (2022). Developed post-ERCP pancreatitis.
- US today shows stone / sludge within the gallbladder. Mild wall thickening. Mild CBD / intrahepatic duct dilation (prob due to PSC).
- Status post EUS and ERCP. Showed distal thickened CBD and dilated left Paddock duct without stone. ERCP was performed. 1 biliary stent was placed per GI. Given abdominal pain and leukocytosis along with MRI finding, recommended HIDA scan.
HIDA scan ordered by me. Surgery following, trying to see if patient will be better served at [facility] given potential risk of surgical complications
- Pain control - try to use non-narcotic medications given prior h/o dependence.
- Continue abx for now for possible infection. Levaquin / Flagyl with PCN +/- cephalosporin allergies listed.
Hyponatremia
Monitor
Ulcerative Colitis
- Stable. Hold mesalamine acutely. Monitor for changes in bowel habits.
Bipolar Depression
- Stable. Continue current psychotropic med regimen without changes.
Benign Hypertension
- Not on any medications chronically. BP elevated in the ED - ? due to pain.
- IV Hydralazine prn for now for very high BP.
DVT Prophylaxis: SCDs
Code Status: Full
I spent a total of 52 minutes with the patient or on the floor. More than 50% of this time involved counseling and coordination of care.
Anticipated Discharge: 24 - 48 hours
Subjective/Interval History
-
Date of Service: December 17, 2024
has pain
Objective Data
-
Labs:
Laboratory Results
12/17/24
07:54
WBC 12.9 H
Hgb 13.1
Hct 38.7 L
Plt Count 168
Sodium 135
Potassium 4.1
Chloride 103
Carbon Dioxide 23
BUN 19
Creatinine 1.0
Glucose 134 H
Calcium 8.5
Total Bilirubin 1.2
AST 23
ALT 30
Alkaline Phosphatase 141 H
Vital Signs:
Vital Signs
Temp Pulse Resp BP Pulse Ox
98.1 F 78 17 120/80 97
12/17/24 07:39 12/17/24 07:39 12/17/24 07:39 12/17/24 07:39 12/17/24 07:39
I&O
12/16/24 12/17/24 12/18/24
06:59 06:59 06:59
Intake Total 240 / 240
Balance 240 / 240
--- NOTE | 2024-12-17 14:26 | W.PN.GS2 ---
Today's Communication / Plan
-
`
Assessment / Plan
-
Assessment: 69-year-old male with known history of UC and PSC presenting with acute on chronic intermittent epigastric right upper quadrant abdominal pain
Radiographic imaging concerning for cholecystitis
Underwent ERCP yesterday which generally showed stability of his CBD compared to 2022 but there is no opacification of the cystic duct/gallbladder. Cytology obtained from brushing. Biliary stent placed.
Patient with probable cystic duct obstruction from progressive biliary tree fibrosis or possibility of gallstone or sludge. Given persistence of symptoms, leukocytosis and ERCP findings discussed with patient indication for cholecystectomy. We
discussed the potential challenging nature of his cholecystectomy given both his underlying PSC as well as past abdominal surgical history of having undergone an aortobifem and subsequent incisional herniorrhaphy with mesh x 2.
Laparoscopic possible open cholecystectomy was reviewed in detail with the patient and his including the operative technique, potential operative findings and their management, alternative treatment options, benefits and potential risk such as
but not limited to bleeding requiring transfusion, infectious and related complications, iatrogenic injury to surrounding viscera particularly as it may relate to encountered abdominal adhesions and surrounding anatomy; risk for bile duct injury and
increased risk for bile leak. Discussed typical postoperative recovery pending operative findings. Any of the patient's concerns or questions were fully addressed and informed consent was obtained.
Plan: Patient is scheduled today as an add-on for cholecystectomy
Subjective Data
-
Date of Service: December 17, 2024
Patient seen and examined in radiology department/HIDA scan
Also discussed with patient's prior to evaluating patient at scan
Patient felt well initially post ERCP but has had a few recurrent bouts of exacerbated right upper quadrant epigastric abdominal pain similar to what was experiencing on presentation
Objective Data
-
Intake and Output
12/16/24 12/17/24 12/18/24
06:59 06:59 06:59
Intake Total 240 / 240
Balance 240 / 240
Intake:
Oral fluids 240 / 240
Other:
Number of approximated MODERATE 3
amounts of urine
Vital Signs
Temp Pulse Resp BP Pulse Ox
98.1 F 78 17 120/80 97
12/17/24 07:39 12/17/24 07:39 12/17/24 07:39 12/17/24 07:39 12/17/24 07:39
Lab Results
12/17/24 07:54
12/17/24 07:54
Calcium 8.5 mg/dl (8.4-10.2) 12/17/24 07:54
Total Bilirubin 1.2 mg/dl (0.2-1.3) 12/17/24 07:54
Direct Bilirubin 0.4 mg/dl (0.0-0.4) 12/16/24 05:21
AST 23 U/L (17-59) 12/17/24 07:54
ALT 30 U/L (0-50) 12/17/24 07:54
Alkaline Phosphatase 141 U/L (38-126) H 12/17/24 07:54
Total Protein 6.0 g/dl (6.3-8.2) L 12/17/24 07:54
Albumin 3.5 g/dl (3.5-5.0) 12/17/24 07:54
Physical Exam
-
NAD AAO x 3
ABD: Soft, nondistended, tenderness to palpation in the right upper quadrant, no rebound rigidity or guarding
Multiple surgical scars
--- NOTE | 2024-12-17 14:43 | W.SUR.PREOP ---
Pre-Operative Surgical Note
-
I have examined this patient prior to the performance of the scheduled procedure.
The patient's condition is unchanged from the time of the current History and
Physical and the patient is able to undergo the scheduled procedure.
--- NOTE | 2024-12-17 15:53 | PN.CDI ---
CDI
- -
CDI:
Physician Documentation Request
Admit Date: 12/15/24 20:46
Dear Doctor Todd,
Please review the following and provide your response in the progress notes.
Clinical Indicators:
Pt admitted with Cholelithiasis +/- Cholecystitis Primary Sclerosing Cholangitis
On admission WBC 13.3, HR 109, RR 28
Progress note 12/17, ' Continue abx for now for possible infection. Levaquin / Flagyl with PCN...'
Please clarify which of the following most accurately describes the status of the patient's infection:
Sepsis-POA
- Systemic manifestations of infection, with 2 or more SIRS criteria which include:
- Fever >100.9 degrees F or hypothermia < 96.8 degrees F
- Leukocytosis - WBC > 12,000 or leukopenia - WBC < 4,000 or > 10% bands
- Tachycardia > 90 beats per minute
- Tachypnea - RR > 20 breaths per minute or PaCO2 , 32mmHg
Source: Merck Manual 2013
Cholelithiasis +/- Cholecystitis Primary Sclerosing Cholangitis only Without Systemic Illness
Other ( please specify)
Use of terms such as suspected, likely, concern for, or probable (associated with a specific diagnosis that is being evaluated, monitored, or treated as if it exists) are acceptable and can be coded in the inpatient setting, when documented at the
time of discharge.
Thank you,
April Garcia RN
CDI Specialist
[facility]
Please use your independent medical judgment in providing your response.
--- NOTE | 2024-12-17 17:39 | W.IMMPOSTOP ---
Addendum entered and electronically signed by Varun Jean Baptiste MD 12/17/24 18:16:
#[id number]
1gm TXA administered at start and towards conclusion of procedure
floseal placed in region of cystic triangle
Original Note:
Surgical Immed Post Op Note
-
Primary Surgeon: Varun Jean Baptiste MD
Assisting Surgeon: Pam Quintanilla PA-c
Pre-op Diagnosis: Acute cholecystitis
Post-op Diagnosis: Gangrenous acute cholecystitis
Procedure Performed: Laparoscopic cholecystectomy
Anesthesia Type: GETA +0.25% Marcaine
Specimen / Cultures: Gallbladder
Estimated Blood Loss: 300 mL
Complications: None immediate
Operative Findings: 4 laparoscopic sites placed in right lateral abdomen away from herniorrhaphy mesh and associated adhesions. Gangrenous gallbladder encased within acute and chronic inflammatory peel. Dome down cholecystectomy performed.
Significant friability of liver capsule resulting for losing throughout surgery and operative blood loss but well-controlled at conclusion of procedure cystic duct divided flush with infundibulum utilizing endoscopic DEBBIE renee stapler.
Drains: 19 Isidro drain placed in the subhepatic postoperative field
The assistance of Pam Quintanilla PA-C was required due to the complexity of the procedure. During the procedure Pam Quintanilla PA-C assisted with managing the laparoscope, retraction for exposure of the surgical field for cholecystectomy and
assistance with closure of the incision sites.
--- NOTE | 2024-12-17 18:24 | PTCARENOTE ---
Received pt from OR via bed. Pt c/o 10/14 pain in R abd, see MAR. 3 visible laparoscopic sites observed on right abd. Right upper abd SHAVON drain observed with CDI dressing, draining sanguineous fluid. Will initiate post-op vitals.
[2024-12-17] MEDS: OFIRMEV 100 IV ×2 (18:29→23:39)
[2024-12-17] MEDS: DILAUDID 0.25 MG IV (20:42)
[2024-12-17] MEDS: DILAUDID 0.5 MG IV (22:12)
[2024-12-17] MEDS: ZYPREXA 5 MG PO (22:15)
[2024-12-17] MEDS: DESYREL 100 MG PO (22:15)
[2024-12-17] MEDS: REMERON 7.5 MG PO (22:15)
[2024-12-17] MEDS: LEVAQUIN 100 IV (22:15)
[2024-12-17] MEDS: MELATONIN 5 MG PO (23:48)
[2024-12-18] VITALS (48 sets, daily range): BP systolic 0–153; BP diastolic 56–107; BMI 32.1
[2024-12-18 00:45] LABS: Glucose - Point of Care 196 mg/dl (70-99)
[2024-12-18] MEDS: NSS 1000 IV ×2 (00:50→01:40)
--- NOTE | 2024-12-18 01:12 | W.PN.UPDATE ---
Update Note
Progress Note Update
[employer]
Patient is hypotensive with bp 64/46, hr 92, symptomatic. Complained of dizziness.
One assessment, patient is awake, noted with distended abdomen, RLQ and RUQ pain, blood leaking around SHAVON drain insertion site.
type and screen and stat h&h---->hgb leve 10.6 previously 12.1.
-IV bolus of NSS Total 2L
-One unit of blood ordered.
-Discuss the case with national sales executive Surgery Dr. Jean Baptiste, Recommendation for another unit of blood and surgical team will be here shortly.
-IMU level
[2024-12-18] MEDS: COMPAZINE 5 MG IV (01:17)
[2024-12-18 01:23] LABS: Hematocrit 31.1 % (39.0-52.0); Hemoglobin 10.6 g/dL (13.0-18.0); Mean Corp Hgb Conc. 34.1 g/dL (33.0-37.0); Mean Corpuscular Volume 90.7 fL (80.0-94.0); Nucleated Red Blood Cells % 0 % (-); Platelet Count 224 10^3/uL (130-400); Red Cell Dist. Width 12.8 % (11.5-14.5)
--- NOTE | 2024-12-18 01:30 | RR ---
While attempting to drawl labs, pt stated ' I don't feel, like I could pass out. I feel dizzy and my vision is blurry' Pt appeared pale and mildly diaphoretic. Manual BP was 64/46, HR 88, POX 96%. Pt c/o increased RUQ pain. New bloody drainage on SHAVON
dressing. Rapid response called. 2L bolus hung, labs drawn. JEREMÍAS Ladd contacted SX Dr. Jean Baptiste, who facilitated pt's return to the OR.
[2024-12-18 01:34] LABS: Blood Urea Nitrogen 27 mg/dl (9-20); Calcium 7.2 mg/dl (8.4-10.2); Carbon Dioxide 24 mmol/L (22-30); Chloride 103 mmol/L (98-107); Estimated Creatinine Clearance 62 ml/min; Glucose 193 mg/dl (70-99); Magnesium 1.7 mg/dl (1.6-2.3); Potassium 4.3 mmol/L (3.5-5.1); Sodium 132 mmol/L (135-145); eGFR > 60.00
[2024-12-18 01:44] LABS: Troponin I < 0.012 ng/ml
[2024-12-18 02:01] LABS: APTT 27.0 Sec (23.4-35.0); INR 1.32; PT 16.7 Sec (11.4-14.6)
--- NOTE | 2024-12-18 02:06 | W.PN.SURGUPD ---
Surgical Update
Surgical Update
call by overnight [employer]AR[employer] SPECIALIST; pt seen and examined
acute hypotension, dizziness and increased RUQ abd pressure
SHAVON acutely more bloody but then clotted
2L bolus given with improvement in BP but still labile
d/w patient strong suspicion for bleeding at cholecystectomy site
discussed imaging vs OR for exploration and anticipated control of bleeding
after discussions with patient we are proceeding to OR; anticipated procesure - ex lap, evacuation of hematoma, control of bleeding reviewed and informed consent obtained
--- NOTE | 2024-12-18 05:07 | W.IMMPOSTOP ---
Addendum entered and electronically signed by Varun Jean Baptiste MD 12/18/24 16:27:
#[id number]
Original Note:
Surgical Immed Post Op Note
-
Primary Surgeon: Varun Jean Baptiste MD
Assisting Surgeon: None
Pre-op Diagnosis: Suspected post op intraabdominal bleed
Post-op Diagnosis: Intraabdominal bleed
Procedure Performed: Exploratory Laparotomy, evacuation of hematoma and control of GB fossa bleeding vessel
Anesthesia Type: GETA + 0.25% Marcaine with epi
Specimen / Cultures: none
Estimated Blood Loss: 350mL (old clot and operative blood loss)
Intraop fluids: 2 units pRBCs and 3L crystalloid
Complications: none immediate
Operative Findings: Large quantity of intraabdominal clot - evacuated. Small bleeding vessel identified at the base/deep margin of cholecystectomy liver bed adjacent to alena hepatis but on the liver. Suspect that this was a small posterior
vessel that was an cystic vascular branch. clips applied. hemostasis observed otherwise along raw surface of liver from cholecystectomy. Surgicel and Floseal placed. No additional intraabdominal findings
Drain: 19 Isidro
[2024-12-18] MEDS: SUBLIMAZE 25 MCG IV ×2 (05:29→05:41)
[2024-12-18] MEDS: DILAUDID 0.25 MG IV (06:01)
[2024-12-18] MEDS: OFIRMEV 100 IV ×4 (06:10→23:05)
[2024-12-18] MEDS: FLAGYL 500 MG IV (07:27)
[2024-12-18] MEDS: NSS (PRESERVATIVE FREE) 10 ML IV (08:00)
[2024-12-18] MEDS: PROTONIX IV 40 MG IV (08:00)
[2024-12-18] MEDS: DILAUDID 1 MG IV ×4 (08:01→20:47)
[2024-12-18 08:54] LABS: Hematocrit 31.3 % (39.0-52.0); Hemoglobin 10.7 g/dL (13.0-18.0); Mean Corp Hgb Conc. 34.2 g/dL (33.0-37.0); Mean Corpuscular Volume 87.4 fL (80.0-94.0); Nucleated Red Blood Cells % 0 % (-); Red Cell Dist. Width 13.8 % (11.5-14.5)
[2024-12-18 09:05] LABS: ALT (SGPT) 67 U/L (0-50); AST (SGOT) 96 U/L (17-59); Albumin 2.4 g/dl (3.5-5.0); Alkaline Phosphatase 98 U/L (38-126); Blood Urea Nitrogen 26 mg/dl (9-20); Calcium 6.7 mg/dl (8.4-10.2); Carbon Dioxide 25 mmol/L (22-30); Chloride 104 mmol/L (98-107); Estimated Creatinine Clearance 73 ml/min; Glucose 170 mg/dl (70-99); Potassium 4.1 mmol/L (3.5-5.1); Sodium 134 mmol/L (135-145); Total Protein 4.6 g/dl (6.3-8.2); eGFR > 60.00
[2024-12-18 09:15] LABS: Platelet Count 163 10^3/uL (130-400)
--- NOTE | 2024-12-18 09:54 | W.PN.GS2 ---
Today's Communication / Plan
-
`
Assessment / Plan
-
Assessment: 69-year-old male POD #1 status post lap rommel and POD #0 status post laparotomy, evacuation intra-peritoneal/abdominal hematoma and control of gallbladder fossa bleeding
History of UC and PSC presenting with acute on chronic intermittent epigastric right upper quadrant abdominal pain-gangrenous cholecystitis secondary to cystic duct obstruction
AFVSS
Hemoglobin 10.7 postop after getting 2 units intraoperatively
Leukocytosis-reactive
SHAVON more serosanguineous than bloody at the moment, no clots
Plan: Multimodal pain control options (but no NSAIDs given bleeding complication)
N.p.o., NG tube decompression
IV fluids
Monitor SHAVON
Serial H&H
SCDs for VTE prophylaxis over the next 24 to 36 hours pharmacological VTE prophylaxis will have to be held secondary to postop bleeding complication
Any of the patient's or his 's questions were confirmed to be answered
Subjective Data
-
Date of Service: December 18, 2024
Patient seen and examined.
Resting in hospital bed. Patient's was on the phone at we discussed overnight events and current care via speaker phone.
Postoperative pain adequately controlled
No recurrent episodes of dizziness, syncope.
Tightness in the right upper quadrant at incision and diaphragm area with deep breaths related to incision but otherwise no shortness of breath.
Objective Data
-
Intake and Output
12/17/24 12/18/24 12/19/24
06:59 06:59 06:59
Intake Total 240 / 240 4355 / 4355
Output Total 540 / 540
Balance 240 / 240 3815 / 3815
Intake:
Oral fluids 240 / 240 480 / 480
IV fluids (Total) 3675 / 3675
Normosol 300 / 300
IV piggybacks 200 / 200
Amount instilled into GI Tube ( 0 / 0
Total)
[place] Sump 0 / 0
Output:
Drain Output (Total) 40 / 40
Right Lower Abdomen Marek- 40 / 40
Frazier
Gastrointestinal tube output ( 0 / 0
Total)
[place] Sump 0 / 0
Urine, Grover 500 / 500
Other:
Number of approximated MODERATE 3 2
amounts of urine
Vital Signs
Temp Pulse Resp BP Pulse Ox
98.1 F 90 17 108/68 96
12/18/24 07:25 12/18/24 07:15 12/18/24 07:15 12/18/24 07:15 12/18/24 08:26
Lab Results
12/18/24 07:56
Calcium 6.7 mg/dl (8.4-10.2) L* 12/18/24 07:56
Magnesium 1.7 mg/dl (1.6-2.3) 12/18/24 01:07
Total Bilirubin 1.0 mg/dl (0.2-1.3) 12/18/24 07:56
Direct Bilirubin 0.4 mg/dl (0.0-0.4) 12/16/24 05:21
AST 96 U/L (17-59) H 12/18/24 07:56
ALT 67 U/L (0-50) H 12/18/24 07:56
Alkaline Phosphatase 98 U/L (38-126) 12/18/24 07:56
Total Protein 4.6 g/dl (6.3-8.2) L D 12/18/24 07:56
Albumin 2.4 g/dl (3.5-5.0) L 12/18/24 07:56
Physical Exam
-
NAD AAO x 3
ABD: softly protuberant, tenderness to palpation at incision site but no generalized rebound rigidity or guarding.
Incision dressing in place
SHAVON: no clot, no dark blood, mostly serosanguineous fluid, stripped.
Patient has a grover catheter: Yes
[2024-12-18] MEDS: CALCIUM GLUCONATE 100 IV (10:08)
[2024-12-18] MEDS: LR IV (10:18)
--- NOTE | 2024-12-18 10:50 | PTCARENOTE ---
Pt received from PACU s/p Exploratory Laparotomy, evacuation of hematoma, control of bleeding. PRN Dilaudid 1mg IV Q2H given as able for 7/10 abdominal pain. Mepilex dressing C/D.I on right side of abdomen,. SHAVON drain with sanguinous output. Leaking
around insertion site, dressing reinforced. Sinus rhythm on personnel monitor. MAP > 65 without pressors. Murmur upon auscultation. Received on 4L, weaned to 2L; SaO2 remains > 95%. Lungs clear to auscultation. Chaves sump in left nare at 63cm tabitha
to LIWS. Flushed with tap water per order. Brown/Green output. Sosa catheter draining yellow. LR infusing @ 120 ml/hr. Ca resulted 6.7. Calcium gluconate 1 gram IV X1 now infusing.
[2024-12-18] MEDS: LR 1000 IV ×2 (11:07→22:31)
[2024-12-18] MEDS: FLAGYL 500 MG 100 IV ×2 (12:22→20:39)
[2024-12-18] MEDS: DILAUDID 0.5 MG IV ×2 (12:24→14:24)
--- NOTE | 2024-12-18 12:56 | W.PN.HOSP.TC ---
Today's Communication/Plan
-
Monitor vital signs and see plan
NG tube
Replete calcium
Monitor H&H
cw IVF
abx
Assessment / Plan
Assessment / Plan
General: Other (69y M in no acute distress.)
HEENT: Moist mucous membranes and PERRLA
Respiratory: Clear; No Wheezes, Rales or Rhonchi
Cardiac: S1/S2, Regular Rhythm and Murmur (II/ AGNES)
GI: Soft, Non Distended, Normal Bowel Sounds and Other (Pos RUQ tenderness)
Musculoskeletal: No Edema
Neuro: AO x 3
RUQ Abdominal Pain
Cholelithiasis with acute gangrenous cholecystitis
Sepsis likely secondary to above
Primary Sclerosing Cholangitis
could also be 2/2 to possible stricture
Surgery and GI following
- Underwent ERCP with CBD dilation at that time (2022). Developed post-ERCP pancreatitis.
- US shows stone / sludge within the gallbladder. Mild wall thickening. Mild CBD / intrahepatic duct dilation (prob due to PSC).
- Status post EUS and ERCP. Showed distal thickened CBD and dilated left Paddock duct without stone. ERCP was performed. 1 biliary stent was placed per GI.
Appears symptoms likely also secondary to gangrenous cholecystitis. Status post lap rommel, complicated overnight with increased abdominal pain along with bloody discharge from drain. Status post laparotomy with evacuation of intra
peritoneal/abdominal hematoma and control of gallbladder fossa bleeding.
Continue with NG tube for decompression, monitor SHAVON drain
Surgery following
Monitor H&H
- Continue abx for now for possible infection. Levaquin / Flagyl with PCN +/- cephalosporin allergies listed.
Blood culture pending, was not drawn on admission
N.p.o. for now, diet per surgery
Acute blood loss anemia post lap ormmel
Status post laparotomy with evacuation of intra peritoneal/abdominal hematoma and control of gallbladder fossa bleeding
Status post 2 unit PRBC 9/13, continue to monitor hemoglobin
Monitor H&H
Hyponatremia
Monitor
Hypocalcemia
Replete
Monitor
Elevated LFTs
Monitor
Ulcerative Colitis
- Stable. Hold mesalamine acutely. Monitor for changes in bowel habits.
Bipolar Depression
- Stable. Continue current psychotropic med regimen without changes.
Benign Hypertension
Blood pressure low overnight secondary to hypotension from acute blood loss from bleeding
- IV Hydralazine prn
DVT Prophylaxis: SCDs
Code Status: Full
I spent a total of 53 minutes with the patient or on the floor. More than 50% of this time involved counseling and coordination of care.
Anticipated Discharge: > 48 hours
Subjective/Interval History
-
Date of Service: December 18, 2024
Denies nausea
Objective Data
-
Labs:
Laboratory Results
12/18/24 12/18/24 12/18/24
01:07 01:36 07:56
WBC 13.2 H 12.8 H
Hgb 10.6 L 10.7 L
Hct 31.1 L 31.3 L
Plt Count 224 D 163 D
PT 16.7 H
INR 1.32
APTT 27.0
Sodium 132 L 134 L
Potassium 4.3 4.1
Chloride 103 104
Carbon Dioxide 24 25
BUN 27 H 26 H
Creatinine 1.3 1.1
Glucose 193 H 170 H
Calcium 7.2 L 6.7 L*
Total Bilirubin 1.0
AST 96 H
ALT 67 H
Alkaline Phosphatase 98
12/18/24 12/18/24
13:00 21:00
WBC
Hgb Pending Pending
Hct Pending Pending
Plt Count
PT
INR
APTT
Sodium
Potassium
Chloride
Carbon Dioxide
BUN
Creatinine
Glucose
Calcium
Total Bilirubin
AST
ALT
Alkaline Phosphatase
Vital Signs:
Vital Signs
Temp Pulse Resp BP Pulse Ox
97.6 F 90 17 108/68 90
12/18/24 11:10 12/18/24 07:15 12/18/24 07:15 12/18/24 07:15 12/18/24 11:17
I&O
12/17/24 12/18/24 12/19/24
06:59 06:59 06:59
Intake Total 240 / 240 4355 / 4355
Output Total 540 / 540 30 / 30
Balance 240 / 240 3815 / 3815 -30 / -30
[2024-12-18 13:47] LABS: Hematocrit 29.3 % (39.0-52.0); Hemoglobin 10.1 g/dL (13.0-18.0)
[2024-12-18 21:08] LABS: Hematocrit 28.2 % (39.0-52.0); Hemoglobin 9.9 g/dL (13.0-18.0)
[2024-12-18] MEDS: LEVAQUIN 100 IV (22:29)
[2024-12-18] MEDS: ZYPREXA PO (22:55)
[2024-12-18] MEDS: DESYREL PO (22:55)
[2024-12-18] MEDS: BENADRYL 12.5 MG IV (23:05)
[2024-12-19] VITALS (12 sets, daily range): BP systolic 108–154; BP diastolic 64–133
[2024-12-19] MEDS: DILAUDID 1 MG IV ×7 (02:49→22:30)
--- NOTE | 2024-12-19 03:38 | PTCARENOTE ---
Pt received at 19:00. AAOx3, pleasant. SR, HR 60s-70s. Pulses palpable. 2L NC, spot check pulse ox 94% and above. NGT to LIWS, dark green output. Sosa, draining yellow urine. R abdominal incision with dressing CDI, R abdomen SHAVON drain-sanguineous
drainage. C/O pain 7/10 to right abdomen, PRN dilaudid given and effective.
[2024-12-19] MEDS: FLAGYL 500 MG 100 IV ×3 (03:49→19:55)
[2024-12-19 04:09] LABS: Hematocrit 28.3 % (39.0-52.0); Hemoglobin 9.8 g/dL (13.0-18.0); Mean Corp Hgb Conc. 34.6 g/dL (33.0-37.0); Mean Corpuscular Volume 86.3 fL (80.0-94.0); Nucleated Red Blood Cells % 0 % (-); Platelet Count 162 10^3/uL (130-400); Red Cell Dist. Width 13.9 % (11.5-14.5)
[2024-12-19 04:31] LABS: ALT (SGPT) 50 U/L (0-50); AST (SGOT) 43 U/L (17-59); Albumin 2.5 g/dl (3.5-5.0); Alkaline Phosphatase 88 U/L (38-126); Blood Urea Nitrogen 22 mg/dl (9-20); Calcium 7.1 mg/dl (8.4-10.2); Carbon Dioxide 25 mmol/L (22-30); Chloride 107 mmol/L (98-107); Estimated Creatinine Clearance 100 ml/min; Glucose 115 mg/dl (70-99); Potassium 4.1 mmol/L (3.5-5.1); Sodium 134 mmol/L (135-145); Total Protein 4.8 g/dl (6.3-8.2); eGFR > 60.00
[2024-12-19] MEDS: OFIRMEV 100 IV ×4 (06:41→23:45)
[2024-12-19] MEDS: NSS (PRESERVATIVE FREE) 10 ML IV (06:43)
[2024-12-19] MEDS: PROTONIX IV 40 MG IV (06:44)
[2024-12-19] MEDS: LR 1000 IV ×2 (09:51→19:55)
--- NOTE | 2024-12-19 10:57 | W.PN.GS2 ---
Addendum entered and electronically signed by Varun Jean Baptiste MD 12/19/24 11:05:
Also continue Levaquin/Flagyl for gangrenous cholecystitis coverage; would cover for 7 days postop secondary to severity of cholecystitis
Original Note:
Today's Communication / Plan
-
`
Assessment / Plan
-
Assessment: 69-year-old male POD #2 status post lap rommel and POD #1 status post laparotomy, evacuation intra-peritoneal/abdominal hematoma and control of gallbladder fossa bleeding
History of UC and PSC presenting with acute on chronic intermittent epigastric right upper quadrant abdominal pain-gangrenous cholecystitis secondary to cystic duct obstruction
AFVSS
Hemoglobin 9.8 and stable -acute blood loss anemia secondary to surgery and subsequent intra-abdominal bleed surgically controlled
Leukocytosis-reactive, improving
SHAVON somewhat sanguinous but modest output and no signs of surgical bleeding
Plan: Multimodal pain control; Ofirmev ATC, Dilaudid as needed (but no NSAIDs given bleeding complication)
N.p.o., NG tube decompression until robust GI function
Maintenance IV fluid with lactated Ringer's renewed at reduced rate
Monitor SHAVON
Repeat CBC in the evening
Continue SCDs alone for VTE prophylaxis; pharmacological VTE prophylaxis will have to be held secondary to postop bleeding complication
Maintain Grover catheter today; remove tomorrow a.m. 12/20/2024
Subjective Data
-
Date of Service: December 19, 2024
Patient seen and examined.
Reports postoperative incisional pain predominantly in the right upper quadrant. Adequately controlled with pain regiment.
No nausea, no vomiting, some heartburn/indigestion with NG tube in place
Past a bit of flatus for the first time this morning, no bowel movements
Objective Data
-
Intake and Output
12/18/24 12/19/24 12/20/24
06:59 06:59 06:59
Intake Total 4355 / 4355 1080 / 1080
Output Total 540 / 540 1500 / 1500
Balance 3815 / 3815 -420 / -420
Intake:
Oral fluids 480 / 480
IV fluids (Total) 3675 / 3675 1079 / 1079
Lr 1,000 ml @ 120 mls/hr IV . 1079
Q8H20M [facility] Rx#:[id number]
Normosol 300 / 300
IV piggybacks 200 / 200
Amount instilled into GI Tube ( 0 / 0
Total)
[place] Sump 0 / 0
Output:
Drain Output (Total) 40 / 40 100 / 100
Right Lower Abdomen Marek- 40 / 40 100 / 100
Frazier
Gastrointestinal tube output ( 0 / 0 600 / 600
Total)
[place] Sump 0 / 0 600 / 600
Urine, Grover 500 / 500 800 / 800
Other:
Number of approximated MODERATE 2
amounts of urine
Vital Signs
Temp Pulse Resp BP Pulse Ox
98.3 F 60 14 150/81 96
12/19/24 07:08 12/19/24 06:30 12/19/24 06:30 12/19/24 06:00 12/19/24 04:17
Lab Results
12/19/24 03:58
12/19/24 03:58
Calcium 7.1 mg/dl (8.4-10.2) L 12/19/24 03:58
Magnesium 1.7 mg/dl (1.6-2.3) 12/18/24 01:07
Total Bilirubin 0.6 mg/dl (0.2-1.3) 12/19/24 03:58
Direct Bilirubin 0.4 mg/dl (0.0-0.4) 12/16/24 05:21
AST 43 U/L (17-59) 12/19/24 03:58
ALT 50 U/L (0-50) 12/19/24 03:58
Alkaline Phosphatase 88 U/L (38-126) 12/19/24 03:58
Total Protein 4.8 g/dl (6.3-8.2) L 12/19/24 03:58
Albumin 2.5 g/dl (3.5-5.0) L 12/19/24 03:58
Physical Exam
-
NAD AAO x 3
ABD: Softly distended, tenderness to palpation localized to the right upper quadrant incision region.
Lap surgical sites with glue dressings
Open incision site with occlusive dressing - dry
SHAVON with sanguinous output but no clot, stripped and confirmed function
Patient has a grover catheter: Yes
--- NOTE | 2024-12-19 13:26 | W.PN.HOSP.TC ---
Today's Communication/Plan
-
Monitor vital signs see plan
Pain control
Continue with NGT
Monitor hemoglobin
Maintain Sosa, possible removal tomorrow if okay with surgery
pain control
Okay to transfer to
Assessment / Plan
Assessment / Plan
General: Other (69y M in no acute distress.)
HEENT: Moist mucous membranes and PERRLA
Respiratory: Clear; No Wheezes, Rales or Rhonchi
Cardiac: S1/S2, Regular Rhythm and Murmur (II/ AGNES)
GI: Soft, Non Distended, Normal Bowel Sounds and Other (Pos RUQ tenderness)
Musculoskeletal: No Edema
Neuro: AO x 3
RUQ Abdominal Pain
Cholelithiasis with acute gangrenous cholecystitis
Sepsis POA likely secondary to above
Primary Sclerosing Cholangitis
could also be 2/2 to possible stricture
Surgery and GI following
- Underwent ERCP with CBD dilation at that time (2022). Developed post-ERCP pancreatitis.
- US shows stone / sludge within the gallbladder. Mild wall thickening. Mild CBD / intrahepatic duct dilation (prob due to PSC).
- Status post EUS and ERCP. Showed distal thickened CBD and dilated left Paddock duct without stone. ERCP was performed. 1 biliary stent was placed per GI.
Appears symptoms likely also secondary to gangrenous cholecystitis. Status post lap rommel, complicated overnight with increased abdominal pain along with bloody discharge from drain. Status post laparotomy with evacuation of intra
peritoneal/abdominal hematoma and control of gallbladder fossa bleeding.
Continue with NG tube for decompression, monitor SHAVON drain
Surgery following
Monitor H&H
- Continue abx for now for possible infection. Levaquin / Flagyl with PCN +/- cephalosporin allergies listed.
Blood culture NGTD, was not drawn on admission
N.p.o. for now, diet per surgery
+ Sosa IntraOp, remove Sosa when okay with surgery
Acute blood loss anemia post lap rommel
Status post laparotomy with evacuation of intra peritoneal/abdominal hematoma and control of gallbladder fossa bleeding
Status post 2 unit PRBC 12/18, continue to monitor hemoglobin
Monitor H&H
Hyponatremia
Monitor
Hypocalcemia
Monitor
Elevated LFTs
Monitor
Ulcerative Colitis
- Stable. Hold mesalamine acutely. Monitor for changes in bowel habits.
Bipolar Depression
- Stable. Continue current psychotropic med regimen without changes.
Benign Hypertension
Blood pressure low 12/17 overnight secondary to hypotension from acute blood loss from bleeding
- IV Hydralazine prn
DVT Prophylaxis: SCDs
Code Status: Full
Anticipated Discharge: > 48 hours
Subjective/Interval History
-
Date of Service: December 19, 2024
Has NG tube
Objective Data
-
Labs:
Laboratory Results
12/19/24
03:58
WBC 11.3 H
Hgb 9.8 L
Hct 28.3 L
Plt Count 162
Sodium 134 L
Potassium 4.1
Chloride 107
Carbon Dioxide 25
BUN 22 H
Creatinine 0.8
Glucose 115 H
Calcium 7.1 L
Total Bilirubin 0.6
AST 43
ALT 50
Alkaline Phosphatase 88
Vital Signs:
Vital Signs
Temp Pulse Resp BP Pulse Ox
98.5 F 60 14 150/81 97
12/19/24 11:29 12/19/24 06:30 12/19/24 06:30 12/19/24 06:00 12/19/24 12:02
I&O
12/18/24 12/19/24 12/20/24
06:59 06:59 06:59
Intake Total 4355 / 4355 1080 / 1080 510 / 510
Output Total 540 / 540 1500 / 1500
Balance 3815 / 3815 -420 / -420 485 / 485
--- NOTE | 2024-12-19 14:09 | PTCARENOTE ---
Pt received in bed @ 0700. AAOx3. PRN Dilaudid given Q2H for pain. Scheduled Ofirmev administered. SaO2 97% on room air. Sinus rhythm on geomatics professor. Murmur upon auscultationMAP > 65 without pressors. SaO2 97% on room air. Left nare NG tube @
63cm to LIWS. Brown/Green output. Tap water flush Q4H. Sosa catheter with terrance urine, ordered to be removed POD #2. Right abdomen mepilex C/D/I. Right SHAVON drain serosanguineous output. LR infusing @ 100ml/hr.
--- NOTE | 2024-12-19 17:05 | PTCARENOTE ---
1535 Pt arrived to 2s in bed from ICU. Henri PRYOR. VSS. IVF infusing. oriented to room and call antonio. at bedside.
[2024-12-19] MEDS: LR IV (21:45)
[2024-12-19] MEDS: DESYREL PO (22:23)
[2024-12-19] MEDS: LEVAQUIN 100 IV (22:23)
[2024-12-19] MEDS: ZYPREXA PO (22:30)
[2024-12-20] MEDS: DILAUDID 1 MG IV ×8 (01:45→22:09)
[2024-12-20] MEDS: FLAGYL 500 MG 100 IV ×3 (04:10→19:46)
[2024-12-20] MEDS: OFIRMEV 100 IV ×2 (06:01→12:45)
[2024-12-20 06:28] LABS: Hematocrit 28.7 % (39.0-52.0); Hemoglobin 9.8 g/dL (13.0-18.0); Mean Corp Hgb Conc. 34.1 g/dL (33.0-37.0); Mean Corpuscular Volume 87.2 fL (80.0-94.0); Nucleated Red Blood Cells % 0 % (-); Platelet Count 165 10^3/uL (130-400); Red Cell Dist. Width 13.5 % (11.5-14.5)
[2024-12-20 06:50] LABS: ALT (SGPT) 38 U/L (0-50); AST (SGOT) 29 U/L (17-59); Albumin 2.5 g/dl (3.5-5.0); Alkaline Phosphatase 95 U/L (38-126); Blood Urea Nitrogen 19 mg/dl (9-20); Calcium 7.4 mg/dl (8.4-10.2); Carbon Dioxide 24 mmol/L (22-30); Chloride 107 mmol/L (98-107); Estimated Creatinine Clearance 100 ml/min; Glucose 81 mg/dl (70-99); Potassium 3.7 mmol/L (3.5-5.1); Sodium 134 mmol/L (135-145); Total Protein 4.8 g/dl (6.3-8.2); eGFR > 60.00
[2024-12-20 07:15] VITALS: BP 153/71
[2024-12-20] MEDS: NSS (PRESERVATIVE FREE) 10 ML IV (09:00)
[2024-12-20] MEDS: PROTONIX IV 40 MG IV (09:00)
[2024-12-20] MEDS: LR 1000 IV ×2 (09:00→18:11)
--- NOTE | 2024-12-20 09:56 | W.PN.GS2 ---
Addendum entered and electronically signed by Fernie Mensah MD 12/20/24 11:18:
I saw and examined the patient independently.
The resident's documentation was reviewed and I agree with the note, assessment and plan except where noted below.
Comment: This is a 69-year-old male status post laparoscopic cholecystectomy with return to the OR for XL/washout postop bleed.
NG tube clamp trial today
Trial of void
Original Note:
Today's Communication / Plan
-
NG tube clamp trial today
Pain control (no NSAIDs given bleeding complication)
Okay to restart home medication for sleep, will defer to primary team
Assessment / Plan
-
Patient is a 69-year-old male PMH ulcerative colitis, primary sclerosing cholangitis who presented with RUQ abdominal pain nowPOD #3 status post lap cholecystectomy and POD #2 status post laparotomy, evacuation intra-peritoneal/abdominal hematoma
and control of gallbladder fossa bleeding.
Assessment:
POD3 s/p laparoscopic cholecystectomy
POD2 s/p laparotomy, evacuation intra-peritoneal/abdominal hematoma and control of gallbladder fossa bleeding.
H/o UC and PSC
Hemoglobin 9.8 and stable - acute blood loss anemia secondary to surgery and subsequent intra-abdominal bleed surgically controlled
Leukocytosis-reactive, resolved WBC 8.6
SHAVON drain with sanguinous fluid, modest output
Plan:
NG tube clamp trial today
Okay to restart home medication for sleep, will defer to primary team
Pain control (no NSAIDs given bleeding complication)
NPO, IVF
Monitor SHAVON
Continue to trend CBC
Continue SCDs alone for VTE prophylaxis; pharmacological VTE prophylaxis will have to be held secondary to postop bleeding complication
Subjective Data
-
Date of Service: December 20, 2024
Patient seen at the bedside with Dr. Mensah. Patient states he is 'feeling like a real human again'. Patient still reporting some postoperative incisional pain predominantly in the RUQ, adequately controlled with pain medication. Patient is also
complaining of not being able to sleep. Patient denies any nausea or vomiting. Patient has the NG tube in place with output of about 200 mL of clear yellow fluid. Patient has not had a bowel movement since his admission last week. Patient is
passing flatulence. Patient had his Grover catheter removed earlier this morning, but has not yet urinated.
Objective Data
-
Intake and Output
12/19/24 12/20/24 12/21/24
06:59 06:59 06:59
Intake Total 1080 / 1080 1430 / 1520 1690 / 1690
Output Total 1500 / 1500 1680 / 1880 515 / 515
Balance -420 / -420 -250 / -360 1175 / 1175
Intake:
IV fluids (Total) 1080 / 1080 1180 / 1180 1200 / 1200
Lr 1,000 ml @ 100 mls/hr IV . 1080 / 1080 880 / 880
[facility] Rx#:[id number]
IV piggybacks 100 / 100 400 / 400
Amount instilled into Drain ( 30 / 30
Total)
Right Lower Abdomen Marek- 30 / 30
Frazier
Amount instilled into GI Tube ( 120 / 210 90 / 90
Total)
[place] Sump 120 / 210 90 / 90
Output:
Drain Output (Total) 100 / 100 55 / 55 40 / 40
Right Lower Abdomen Marek- 100 / 100 55 / 55 40 / 40
Frazier
Gastrointestinal tube output ( 600 / 600 550 / 750 200 / 200
Total)
[place] Sump 600 / 600 550 / 750 200 / 200
Urine, Grover 800 / 800 1075 / 1075 275 / 275
Vital Signs
Temp Pulse Resp BP Pulse Ox
98.5 F 72 16 153/71 97
12/20/24 07:15 12/20/24 07:15 12/20/24 07:15 12/20/24 07:15 12/20/24 07:15
Lab Results
12/20/24 05:48
12/20/24 05:48
Calcium 7.4 mg/dl (8.4-10.2) L 12/20/24 05:48
Magnesium 1.7 mg/dl (1.6-2.3) 12/18/24 01:07
Total Bilirubin 0.5 mg/dl (0.2-1.3) 12/20/24 05:48
Direct Bilirubin 0.4 mg/dl (0.0-0.4) 12/16/24 05:21
AST 29 U/L (17-59) 12/20/24 05:48
ALT 38 U/L (0-50) 12/20/24 05:48
Alkaline Phosphatase 95 U/L (38-126) 12/20/24 05:48
Total Protein 4.8 g/dl (6.3-8.2) L 12/20/24 05:48
Albumin 2.5 g/dl (3.5-5.0) L 12/20/24 05:48
Physical Exam
-
General: Not in acute distress
Abdomen: Soft, mild distention, mild tenderness to palpation localized to the RUQ and epigastric regions, abdominal incisions well-approximated. Laparoscopic surgical sites with glue dressing. Open incision site with an occlusive dressing. SHAVON
drain with sanguinous output.
Neuro: AAOX3
Patient has a grover catheter: No
Patient has a central line: No
--- NOTE | 2024-12-20 11:17 | CM ---
Patient seen at bedside on . Patient confirmed he lives with his and is pending d/c of NG tube. Patient also has drain at this time. Patient plan is home with family and VN supports if needed. Patient uncertain which VN option if needed
but indicated [facility] would be possible. CM will confirm with family discharge plan. CM will continue to follow for discharge planning needs.
Plan; home with VN pending medical treatment plan
--- NOTE | 2024-12-20 12:07 | PTCARENOTE ---
ng tube clamped at 1130 per instructions of surgeon. will reclamp at 1430.
[2024-12-20 15:15] VITALS: BP 180/88
--- NOTE | 2024-12-20 15:50 | PTCARENOTE ---
output from ng clamp trial 100cc's. surgeon made aware. instructed to remove ng tube and advance diet to clears. ng removed. clear liquid diet placed. will monitor.
--- NOTE | 2024-12-20 16:49 | W.PN.HOSP.TC ---
Today's Communication/Plan
-
NG tube clamping
Trial of voiding
Antibiotics
Monitor hemoglobin
PT
Assessment / Plan
Assessment / Plan
RUQ Abdominal Pain
Cholelithiasis with acute gangrenous cholecystitis
Sepsis POA likely secondary to above
Primary Sclerosing Cholangitis
could also be 2/2 to possible stricture
Surgery and GI following
- Underwent ERCP with CBD dilation at that time (2022). Developed post-ERCP pancreatitis.
- US shows stone / sludge within the gallbladder. Mild wall thickening. Mild CBD / intrahepatic duct dilation (prob due to PSC).
- Status post EUS and ERCP. Showed distal thickened CBD and dilated left Paddock duct without stone. ERCP was performed. 1 biliary stent was placed per GI.
Appears symptoms likely also secondary to gangrenous cholecystitis. Status post lap rommel, complicated overnight with increased abdominal pain along with bloody discharge from drain. Status post laparotomy with evacuation of intra
peritoneal/abdominal hematoma and control of gallbladder fossa bleeding.
Continue with NG tube for decompression, monitor SHAVON drain
Surgery following
Monitor H&H
- Continue abx for now for possible infection. Levaquin / Flagyl with PCN +/- cephalosporin allergies listed.
Blood culture NGTD, was not drawn on admission
NG tube clamping
Trial of voiding
Acute blood loss anemia post lap rommel
Status post laparotomy with evacuation of intra peritoneal/abdominal hematoma and control of gallbladder fossa bleeding
Status post 2 unit PRBC 12/18, continue to monitor hemoglobin
Monitor H&H
Hyponatremia
Monitor
Hypocalcemia
Monitor
Elevated LFTs
Monitor
Ulcerative Colitis
- Stable. Hold mesalamine acutely. Monitor for changes in bowel habits.
Bipolar Depression
- Stable. Continue current psychotropic med regimen without changes.
Benign Hypertension
Blood pressure low 12/17 overnight secondary to hypotension from acute blood loss from bleeding
- IV Hydralazine prn
DVT Prophylaxis: SCDs
Code Status: Full
Anticipated Discharge: > 48 hours
Subjective/Interval History
-
Date of Service: December 20, 2024
Objective Data
-
Labs:
Laboratory Results
12/20/24
05:48
WBC 8.6
Hgb 9.8 L
Hct 28.7 L
Plt Count 165
Sodium 134 L
Potassium 3.7
Chloride 107
Carbon Dioxide 24
BUN 19
Creatinine 0.8
Glucose 81
Calcium 7.4 L
Total Bilirubin 0.5
AST 29
ALT 38
Alkaline Phosphatase 95
Vital Signs:
Vital Signs
Temp Pulse Resp BP Pulse Ox
99 F 73 16 180/88 97
12/20/24 15:15 12/20/24 15:15 12/20/24 15:15 12/20/24 15:15 12/20/24 15:15
I&O
12/19/24 12/20/24 12/21/24
06:59 06:59 06:59
Intake Total 1080 / 1080 1430 / 1520 3420 / 3420
Output Total 1500 / 1500 1680 / 1880 1090 / 1090
Balance -420 / -420 -250 / -360 2330 / 2330
Physical Exam
-
General: Well Developed and No Apparent Distress
HEENT: Normocephalic, Atraumatic and Moist Mucous Membranes
Respiratory: Clear to Auscultation
Cardiac: Regular Rhythm and S1/S2; Negative Murmur, Rub or Gallop
GI: Soft, Nontender, Nondistended, Normal Bowel Sounds and Other (NG tube in place); Negative Organomegaly
Rectal: Deferred by Provider
Musculoskeletal: No Clubbing, No Cyanosis and No Edema
Skin: Negative Rash
Neuro: Nonfocal/Grossly Intact
[2024-12-20 19:45] VITALS: BP 172/87
[2024-12-20] MEDS: DESYREL 100 MG PO (21:28)
[2024-12-20] MEDS: ZYPREXA 5 MG PO (21:28)
[2024-12-20] MEDS: LEVAQUIN 100 IV (21:28)
[2024-12-20] MEDS: REMERON 7.5 MG PO (21:29)
[2024-12-20 23:20] VITALS: BP 164/88
[2024-12-21] MEDS: DILAUDID 1 MG IV ×3 (00:11→05:18)
[2024-12-21 02:30] VITALS: BP 196/91
[2024-12-21 03:08] VITALS: BP 173/91
[2024-12-21] MEDS: FLAGYL 500 MG 100 IV ×3 (03:38→20:27)
--- NOTE | 2024-12-21 07:08 | W.PN.GS2 ---
Today's Communication / Plan
-
`
Assessment / Plan
-
Assessment: 69-year-old male PMH ulcerative colitis, primary sclerosing cholangitis POD #4 status post lap cholecystectomy and POD #3 status post laparotomy, evacuation intra-peritoneal/abdominal hematoma and control of gallbladder fossa bleeding.
AFVSS
doing well post op
SHAVON lightening SSF and hgb stable
Plan: clear liquids and advance to fulls today
increase OOBTC/ambulation
start oral pain medications
stop IVF
maintain SHAVON
SCDS/ambulation and okay to start lovenox for VTEp this evening given stable hgb for 72hrs post op now
Subjective Data
-
Date of Service: December 21, 2024
pt seen and examined
mary clears
+fl, no BM yet
incisional pain controlled
slept overnight
Objective Data
-
Intake and Output
12/20/24 12/21/24 12/22/24
06:59 06:59 06:59
Intake Total 1430 / 1520 4860 / 4860
Output Total 1680 / 1880 3280 / 3280
Balance -250 / -360 1580 / 1580
Intake:
Oral fluids 770 / 770
IV fluids (Total) 1180 / 1180 3300 / 3300
Lr 1,000 ml @ 100 mls/hr IV . 880 / 880
Q10H KARTIK Rx#:[id number]
IV piggybacks 100 / 100 700 / 700
Amount instilled into Drain ( 30 / 30
Total)
Right Lower Abdomen Marek- 30 / 30
Frazier
Amount instilled into GI Tube ( 120 / 210 90 / 90
Total)
Mccoy Sump 120 / 210 90 / 90
Output:
Drain Output (Total) 55 / 55 130 / 130
Right Lower Abdomen Marek- 55 / 55 130 / 130
Frazier
Gastrointestinal tube output ( 550 / 750 200 / 200
Total)
Mccoy Sump 550 / 750 200 / 200
Urine, Sosa 1075 / 1075 275 / 275
Urine, Voided 2675 / 2675
Vital Signs
Temp Pulse Resp BP Pulse Ox
99.3 F 86 16 173/91 94
12/20/24 23:20 12/21/24 03:08 12/20/24 23:20 12/21/24 03:08 12/20/24 23:20
Calcium 7.4 mg/dl (8.4-10.2) L 12/20/24 05:48
Magnesium 1.7 mg/dl (1.6-2.3) 12/18/24 01:07
Total Bilirubin 0.5 mg/dl (0.2-1.3) 12/20/24 05:48
Direct Bilirubin 0.4 mg/dl (0.0-0.4) 12/16/24 05:21
AST 29 U/L (17-59) 12/20/24 05:48
ALT 38 U/L (0-50) 12/20/24 05:48
Alkaline Phosphatase 95 U/L (38-126) 12/20/24 05:48
Total Protein 4.8 g/dl (6.3-8.2) L 12/20/24 05:48
Albumin 2.5 g/dl (3.5-5.0) L 12/20/24 05:48
Physical Exam
-
NAD AAOx3
ABD: soft, ND, TTP localized to RUQ incision site
SHAVON with SSF - no clots/non bilious
[2024-12-21 08:00] VITALS: BP 180/93
[2024-12-21 08:09] LABS: Blood Urea Nitrogen 11 mg/dl (9-20); Calcium 7.3 mg/dl (8.4-10.2); Carbon Dioxide 24 mmol/L (22-30); Chloride 102 mmol/L (98-107); Estimated Creatinine Clearance 100 ml/min; Glucose 83 mg/dl (70-99); Potassium 3.6 mmol/L (3.5-5.1); Sodium 132 mmol/L (135-145); eGFR > 60.00
[2024-12-21] MEDS: ROXICODONE 5 MG PO ×4 (08:09→20:27)
[2024-12-21] MEDS: PROTONIX IV 40 MG IV (08:09)
[2024-12-21] MEDS: NSS (PRESERVATIVE FREE) 10 ML IV (08:09)
[2024-12-21 08:24] LABS: Hematocrit 31.2 % (39.0-52.0); Hemoglobin 11.0 g/dL (13.0-18.0); Mean Corp Hgb Conc. 35.3 g/dL (33.0-37.0); Mean Corpuscular Volume 87.2 fL (80.0-94.0); Nucleated Red Blood Cells % 0 % (-); Platelet Count 199 10^3/uL (130-400); Red Cell Dist. Width 12.6 % (11.5-14.5)
--- NOTE | 2024-12-21 14:41 | W.PN.HOSP.TC ---
Today's Communication/Plan
-
Advance diet as per surgery
IV antibiotics while inpatient
PT assessment
Assessment / Plan
Assessment / Plan
RUQ Abdominal Pain
Cholelithiasis with acute gangrenous cholecystitis
Sepsis POA likely secondary to above
Primary Sclerosing Cholangitis
could also be 2/2 to possible stricture
Surgery and GI following
- Underwent ERCP with CBD dilation at that time (2022). Developed post-ERCP pancreatitis.
- US shows stone / sludge within the gallbladder. Mild wall thickening. Mild CBD / intrahepatic duct dilation (prob due to PSC).
- Status post EUS and ERCP. Showed distal thickened CBD and dilated left Paddock duct without stone. ERCP was performed. 1 biliary stent was placed per GI.
Appears symptoms likely also secondary to gangrenous cholecystitis. Status post lap rommel, complicated overnight with increased abdominal pain along with bloody discharge from drain. Status post laparotomy with evacuation of intra
peritoneal/abdominal hematoma and control of gallbladder fossa bleeding.
NG tube discontinued 12/20
Clears advance to fulls if tolerates
Maintain SHAVON drain
Antibiotics (cultures negative) continue for now
Acute blood loss anemia post lap rommel
Status post laparotomy with evacuation of intra peritoneal/abdominal hematoma and control of gallbladder fossa bleeding
Status post 2 unit PRBC 12/18, continue to monitor hemoglobin
Monitor H&H
Hyponatremia
Monitor
Hypocalcemia
Monitor
Elevated LFTs
Monitor
Ulcerative Colitis
- Stable. Hold mesalamine acutely. Monitor for changes in bowel habits.
Bipolar Depression
- Stable. Continue current psychotropic med regimen without changes.
Benign Hypertension
Blood pressure low 12/17 overnight secondary to hypotension from acute blood loss from bleeding
- IV Hydralazine prn
DVT Prophylaxis: SCDs
Code Status: Full
Anticipated Discharge: 24 - 48 hours
Subjective/Interval History
-
Date of Service: December 21, 2024
Objective Data
-
Labs:
Laboratory Results
12/21/24
07:21
WBC 10.3
Hgb 11.0 L
Hct 31.2 L
Plt Count 199 D
Sodium 132 L
Potassium 3.6
Chloride 102
Carbon Dioxide 24
BUN 11
Creatinine 0.8
Glucose 83
Calcium 7.3 L
Vital Signs:
Vital Signs
Temp Pulse Resp BP Pulse Ox
99.7 F 81 18 180/93 96
12/21/24 08:00 12/21/24 08:00 12/21/24 08:00 12/21/24 08:00 12/21/24 08:00
I&O
12/20/24 12/21/24 12/22/24
06:59 06:59 06:59
Intake Total 1430 / 1520 4860 / 4860
Output Total 1680 / 1880 3280 / 3280 400 / 400
Balance -250 / -360 1580 / 1580 -400 / -400
Physical Exam
-
General: Well Developed and No Apparent Distress
HEENT: Normocephalic, Atraumatic and Moist Mucous Membranes
Respiratory: Clear to Auscultation
Cardiac: Regular Rhythm and S1/S2; Negative Murmur, Rub or Gallop
GI: Soft, Nontender, Nondistended, Normal Bowel Sounds and Other (NG tube in place); Negative Organomegaly
Rectal: Deferred by Provider
Musculoskeletal: No Clubbing, No Cyanosis and No Edema
Skin: Negative Rash
Neuro: Nonfocal/Grossly Intact
--- NOTE | 2024-12-21 14:49 | CM ---
Chart reviewed and case worker will follow up with patient progress and discharge needs, visiting nurses, patient is not sure at this time.
Plan; Home when stable.
[2024-12-21 15:45] VITALS: BP 169/97
[2024-12-21] MEDS: LOVENOX 40 MG SC (18:10)
[2024-12-21] MEDS: LR IV (19:04)
[2024-12-21] MEDS: ZYPREXA 5 MG PO (21:48)
[2024-12-21] MEDS: LEVAQUIN 100 IV (21:48)
[2024-12-21] MEDS: DESYREL 100 MG PO (21:49)
[2024-12-21] MEDS: REMERON 7.5 MG PO (21:49)
[2024-12-21 23:09] VITALS: BP 160/80
[2024-12-22] MEDS: ROXICODONE 5 MG PO ×4 (00:31→20:32)
--- NOTE | 2024-12-22 02:29 | DOWNTIME ---
There was a [employer] Client Microwave Technician Downtime on 12/22/2024 from 0100 to 12/22/2024 at 0215. Downtime documentation of patient's care, including medication administrations, has been reconciled in the electronic record per guidelines. Refer to the
patient's paper chart under the miscellaneous tab to see printed paper medication records and downtime forms.
[2024-12-22] MEDS: FLAGYL 500 MG 100 IV ×3 (04:19→20:20)
[2024-12-22 07:20] VITALS: BP 138/84
--- NOTE | 2024-12-22 08:01 | W.PN.GS2 ---
Today's Communication / Plan
-
`
Assessment / Plan
-
Assessment: 69-year-old male PMH ulcerative colitis, primary sclerosing cholangitis POD #5 status post lap cholecystectomy and POD #4 status post laparotomy, evacuation intra-peritoneal/abdominal hematoma and control of gallbladder fossa bleeding.
AFVSS
doing well post op
SHAVON with stable character of drainage
AM labs pending
Plan: full liquid to regular diet today
Senokot and miralax this AM for bowel regiment
increase OOBTC/ambulation
continue oral pain medications and home meds
maintain SHAVON
continue Levaquin/Flagyl for 5 day course of coverage from operative interventions secondary to severity of cholecystitis
SCDS/ambulation and okay to start lovenox for VTEp this evening given stable hgb for 72hrs post op now
probable d/c in 24-48hrs assuming return of GI function
Subjective Data
-
Date of Service: December 22, 2024
pt seen and examined
mary clears throughout the day yesterday
passing flatus, no BM
appetite starting to return
pain at incision but adequately managed with oxy
Objective Data
-
Intake and Output
12/21/24 12/22/24 12/23/24
06:59 06:59 06:59
Intake Total 4860 / 4860 1860 / 1860
Output Total 3280 / 3280 2690 / 2690
Balance 1580 / 1580 -830 / -830
Intake:
Oral fluids 770 / 770 1560 / 1560
IV fluids (Total) 3300 / 3300
IV piggybacks 700 / 700 300 / 300
Amount instilled into GI Tube ( 90 / 90
Total)
Wilson Sump 90 / 90
Output:
Drain Output (Total) 130 / 130 90 / 90
Right Lower Abdomen Marek- 130 / 130 90 / 90
Frazier
Gastrointestinal tube output ( 200 / 200
Total)
Wilson Sump 200 / 200
Urine, Sosa 275 / 275
Urine, Voided 2675 / 2675 2600 / 2600
Vital Signs
Temp Pulse Resp BP Pulse Ox
99.3 F 82 16 138/84 96
12/22/24 07:20 12/22/24 07:20 12/22/24 07:20 12/22/24 07:20 12/22/24 07:20
Calcium 7.3 mg/dl (8.4-10.2) L 12/21/24 07:21
Magnesium 1.7 mg/dl (1.6-2.3) 12/18/24 01:07
Total Bilirubin 0.5 mg/dl (0.2-1.3) 12/20/24 05:48
Direct Bilirubin 0.4 mg/dl (0.0-0.4) 12/16/24 05:21
AST 29 U/L (17-59) 12/20/24 05:48
ALT 38 U/L (0-50) 12/20/24 05:48
Alkaline Phosphatase 95 U/L (38-126) 12/20/24 05:48
Total Protein 4.8 g/dl (6.3-8.2) L 12/20/24 05:48
Albumin 2.5 g/dl (3.5-5.0) L 12/20/24 05:48
Physical Exam
-
NAD AAOx3
ABD: softly protuberant but not tensley distended
incisional tenderness, dressing removed - vandana in place, no erythema, no drainage
SHAVON with sanguinous drainage
[2024-12-22] MEDS: SENOKOT 8.6 MG PO (08:21)
[2024-12-22] MEDS: NSS (PRESERVATIVE FREE) 10 ML IV (08:21)
[2024-12-22] MEDS: MIRALAX 17 GRAMS PO (08:21)
[2024-12-22] MEDS: PROTONIX IV 40 MG IV (08:22)
[2024-12-22 08:25] LABS: Hematocrit 33.2 % (39.0-52.0); Hemoglobin 11.6 g/dL (13.0-18.0); Mean Corp Hgb Conc. 34.9 g/dL (33.0-37.0); Mean Corpuscular Volume 87.1 fL (80.0-94.0); Nucleated Red Blood Cells % 0 % (-); Platelet Count 249 10^3/uL (130-400); Red Cell Dist. Width 12.5 % (11.5-14.5)
[2024-12-22 08:30] LABS: Blood Urea Nitrogen 10 mg/dl (9-20); Calcium 7.9 mg/dl (8.4-10.2); Carbon Dioxide 28 mmol/L (22-30); Chloride 102 mmol/L (98-107); Estimated Creatinine Clearance 100 ml/min; Glucose 129 mg/dl (70-99); Potassium 3.6 mmol/L (3.5-5.1); Sodium 133 mmol/L (135-145); eGFR > 60.00
--- NOTE | 2024-12-22 14:34 | W.PN.HOSP.TC ---
Today's Communication/Plan
-
Solid diet
Antibiotics through 12/25
PT assessment
Discharge planning
Assessment / Plan
Assessment / Plan
RUQ Abdominal Pain
Cholelithiasis with acute gangrenous cholecystitis
Sepsis POA likely secondary to above
Primary Sclerosing Cholangitis
could also be 2/2 to possible stricture
Surgery and GI following
- Underwent ERCP with CBD dilation at that time (2022). Developed post-ERCP pancreatitis.
- US shows stone / sludge within the gallbladder. Mild wall thickening. Mild CBD / intrahepatic duct dilation (prob due to PSC).
- Status post EUS and ERCP. Showed distal thickened CBD and dilated left Paddock duct without stone. ERCP was performed. 1 biliary stent was placed per GI.
Appears symptoms likely also secondary to gangrenous cholecystitis. Status post lap rommel, complicated overnight with increased abdominal pain along with bloody discharge from drain. Status post laparotomy with evacuation of intra
peritoneal/abdominal hematoma and control of gallbladder fossa bleeding.
NG tube discontinued 12/20
Low residue diet
Maintain SHAVON drain
Antibiotics (cultures negative) continue for now
Acute blood loss anemia post lap rommel
Status post laparotomy with evacuation of intra peritoneal/abdominal hematoma and control of gallbladder fossa bleeding
Status post 2 unit PRBC 12/18, continue to monitor hemoglobin
Monitor H&H
Hyponatremia
Monitor
Hypocalcemia
Monitor
Elevated LFTs
Monitor
Ulcerative Colitis
- Stable. Hold mesalamine acutely. Monitor for changes in bowel habits.
Bipolar Depression
- Stable. Continue current psychotropic med regimen without changes.
Benign Hypertension
Blood pressure low 12/17 overnight secondary to hypotension from acute blood loss from bleeding
- IV Hydralazine prn
DVT Prophylaxis: SCDs
Code Status: Full
Anticipated Discharge: 24 - 48 hours
Subjective/Interval History
-
Date of Service: December 22, 2024
Objective Data
-
Labs:
Laboratory Results
12/22/24
07:03
WBC 9.4
Hgb 11.6 L
Hct 33.2 L
Plt Count 249 D
Sodium 133 L
Potassium 3.6
Chloride 102
Carbon Dioxide 28
BUN 10
Creatinine 0.8
Glucose 129 H
Calcium 7.9 L
Vital Signs:
Vital Signs
Temp Pulse Resp BP Pulse Ox
99.3 F 82 16 138/84 96
12/22/24 07:20 12/22/24 07:20 12/22/24 07:20 12/22/24 07:20 12/22/24 07:20
I&O
12/21/24 12/22/24 12/23/24
06:59 06:59 06:59
Intake Total 4860 / 4860 1860 / 1860
Output Total 3280 / 3280 2690 / 2690
Balance 1580 / 1580 -830 / -830
Physical Exam
-
General: Well Developed and No Apparent Distress
HEENT: Normocephalic, Atraumatic and Moist Mucous Membranes
Respiratory: Clear to Auscultation
Cardiac: Regular Rhythm and S1/S2; Negative Murmur, Rub or Gallop
GI: Soft, Nontender, Nondistended, Normal Bowel Sounds and Other (NG tube in place); Negative Organomegaly
Rectal: Deferred by Provider
Musculoskeletal: No Clubbing, No Cyanosis and No Edema
Skin: Negative Rash
Neuro: Nonfocal/Grossly Intact
[2024-12-22 15:00] VITALS: BP 146/76
--- NOTE | 2024-12-22 15:04 | CM ---
CM following re: discharge planning.
Reviewed pt's chart, met with pt.
Pt is POD #5 status post lap cholecystectomy and POD #4 status post laparotomy, evacuation intra-peritoneal/abdominal hematoma and control of gallbladder fossa bleeding. Continue supportive care.
Pt stated he is awaiting for PT and OT evaluations and will be ready to go home.
PT and OT orders noted.
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
D/C plan: most likely home with VN services if recommended by PT/OT.
CM will follow with discharge plan updates as hospitalization progresses
[2024-12-22 15:32] VITALS: BP 130/83; BP 141/90; PULSE 93; O2SAT 95
[2024-12-22] MEDS: LOVENOX 40 MG SC (17:05)
[2024-12-22 18:13] VITALS: BP 146/76
[2024-12-22] MEDS: FLUSH (NSS) 2 FLUSH IV (20:20)
[2024-12-22] MEDS: LEVAQUIN 100 IV (21:53)
[2024-12-22] MEDS: ZYPREXA 5 MG PO (21:53)
[2024-12-22] MEDS: REMERON 7.5 MG PO (21:53)
[2024-12-22] MEDS: DESYREL 100 MG PO (21:53)
[2024-12-22 23:09] VITALS: BP 139/77
[2024-12-23] MEDS: FLAGYL 500 MG 100 IV ×2 (04:05→12:44)
[2024-12-23] MEDS: FLUSH (NSS) 2 FLUSH IV (04:06)
[2024-12-23 07:50] VITALS: BP 133/81
[2024-12-23] MEDS: MIRALAX 17 GRAMS PO (08:50)
[2024-12-23] MEDS: PROTONIX IV 40 MG IV (08:50)
[2024-12-23] MEDS: NSS (PRESERVATIVE FREE) 10 ML IV (08:51)
[2024-12-23] MEDS: TYLENOL 1000 MG PO (08:52)
--- NOTE | 2024-12-23 08:55 | W.PN.GS2 ---
Addendum entered and electronically signed by Varun Jean Baptiste MD 12/23/24 09:13:
I was physically present and personally performed the handy portions of the surgical evaluation and/or procedure with the resident. I discussed the findings, reviewed the resident�s note, and confirmed the medical decision-making. I provided direct
supervision as required and agree with the assessment and plan as documented with the following additions/corrections:
tolerating dietary advancement
no nausea +fl, no BM yet
pain controlled
AFVSS
SHAVON with SSF; nonbilious
ABD: soft, ND, TTP at incision area in RUQ, no R/R/G
A/P: stable for d/c today with SHAVON
agree with abx plan as outlined by hospitalist
pt declined need for VN for SHAVON
will arrange follow up with myself next week for drain removal
Original Note:
Today's Communication / Plan
-
Plan for discharge today
Will keep SHAVON drain in place, will remove outpatient in 1 week
Assessment / Plan
-
Assessment:
69-year-old male PMH ulcerative colitis, primary sclerosing cholangitis POD # 6 status post lap cholecystectomy and POD # 5 status post laparotomy, evacuation intra-peritoneal/abdominal hematoma and control of gallbladder fossa bleeding.
SHAVON still in place with stable character of drainage
Plan:
Discharge today
Regular diet
Senokot this morning for bowel regimen
Maintain SHAVON for 1 week, will remove drain outpatient in the office
Continue on Levaquin/Flagyl until 12/25
Subjective Data
-
Date of Service: December 23, 2024
Patient is a 69-year-old male PMH of ulcerative colitis and primary sclerosing cholangitis is now POD 6 s/p laparoscopic cholecystectomy and POD 5 s/p laparotomy, evacuation of intraperitoneal/abdominal hematoma and control of gallbladder fossa
bleeding. Patient is feeling well this morning. Patient tolerated solid food for dinner last night and for breakfast this morning. Patient has not had a bowel movement yet but is passing flatus. Patient feels that his pain is well-controlled.
Patient was able to get up and walk around without the walker yesterday. Patient slept 4 to 5 hours last night. Patient feels ready to go home.
Objective Data
-
Intake and Output
12/22/24 12/23/24 12/24/24
06:59 06:59 06:59
Intake Total 1860 / 1860 300 / 300
Output Total 2690 / 2690 380 / 380
Balance -830 / -830 -80 / -80
Intake:
Oral fluids 1560 / 1560
IV piggybacks 300 / 300 300 / 300
Output:
Drain Output (Total) 55 / 55
Right Lower Abdomen Marek- 55 / 55
Frazier
Urine, Voided 2600 / 2600 325 / 325
Other:
Number of approximated MODERATE 1
amounts of urine
Vital Signs
Temp Pulse Resp BP Pulse Ox
98.7 F 110 16 133/81 98
12/23/24 07:50 12/23/24 07:50 12/23/24 07:50 12/23/24 07:50 12/23/24 07:50
Lab Results
12/22/24 07:03
12/22/24 07:03
Calcium 7.9 mg/dl (8.4-10.2) L 12/22/24 07:03
Magnesium 1.7 mg/dl (1.6-2.3) 12/18/24 01:07
Total Bilirubin 0.5 mg/dl (0.2-1.3) 12/20/24 05:48
Direct Bilirubin 0.4 mg/dl (0.0-0.4) 12/16/24 05:21
AST 29 U/L (17-59) 12/20/24 05:48
ALT 38 U/L (0-50) 12/20/24 05:48
Alkaline Phosphatase 95 U/L (38-126) 12/20/24 05:48
Total Protein 4.8 g/dl (6.3-8.2) L 12/20/24 05:48
Albumin 2.5 g/dl (3.5-5.0) L 12/20/24 05:48
Physical Exam
-
General: Not in acute distress
Abdomen: Soft, mildly tender in RUQ, mildly distended, SHAVON drain in place with serosanguineous fluid
Neuro: AAOX3
Patient has a grover catheter: No
Patient has a central line: No
[2024-12-23] MEDS: SENOKOT 8.6 MG PO (10:34)
--- NOTE | 2024-12-23 11:21 | W.DS.TRANS ---
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
-
Discharge Instructions:
Discharge Diagnosis/Procedures Gangrenous cholecystitis. Laparoscopic
cholecystectomy. Laparotomy, evacuation of
intra-abdominal hematoma and control of
postoperative bleeding.
Diet As tolerated,Regular
Additional Diets Smaller meals for the first week postop as
abdominal bloating, distention are common during
healing.
Activity No strenuous activity
Additional Activity No lifting over 15 pounds for 6 weeks postop
Driving Restrictions No driving if utilizing narcotics or until
comfort
Bathing Restrictions OK to Shower
Wound Care May leave surgical sites open to air or cover
with dry gauze dressing.
Maintain SHAVON drain to bulb suction. Empty twice
a day and as needed. Please keep paper record
of drain outputs.
Instructions: How to care for a closed suction drain
Stand-Alone Forms:
Changes to Home Medications: Yes
Discharge Medications:
DC Medications w/original date entered in [email or web address]
mirtazapine 15 mg tablet (Remeron) 7.5 mg PO HS Sleep 04/26/22
olanzapine 5 mg tablet 5 mg PO HS Mental Health/Anxiety 04/26/22
trazodone 100 mg tablet 100 mg PO HS Sleep 04/26/22
mesalamine 1.2 gram tablet,delayed release 2.4 g PO HS Gastrointestinal Issue 12/15/24
acetaminophen 500 mg tablet (Tylenol Extra Strength) 1,000 mg (2 x 500 mg) PO Q6HPRN PRN mild pain #1 tab 12/23/24
ibuprofen 200 mg tablet 400 mg (2 x 200 mg) PO Q6HPRN PRN moderate pain #1 tab 12/23/24
levofloxacin 500 mg tablet 500 mg PO DAILY 3 days #2 tabs 12/23/24
metronidazole 500 mg tablet 500 mg PO TID #6 tabs 12/23/24
oxycodone 5 mg tablet 5 mg PO Q4HPRN PRN breakthrough/severe pain #7 tabs 12/23/24
polyethylene glycol 3350 17 gram/dose oral powder (Miralax) 4 g PO DAILY PRN Constipation #119 grams 12/23/24
Home Medication Changes
Completing antibiotic course
Analgesic regimen
Pending Results: No
--- NOTE | 2024-12-23 11:35 | CM ---
CM following re: discharge planning.
Reviewed pt's chart, met with pt.
Discharge order noted. Pt is aware, expressed his agreement and stated his spouse will transport home. IMM reviewed, placed on chart, pt has a copy.
PT and OT evaluations noted - pt has no skilled PT/OT needs, independent with functional ability.
D/C plan: home no needs. Spouse to transport.
[2024-12-23 12:45] VITALS: BP 134/81
--- NOTE | 2024-12-23 12:53 | PTCARENOTE ---
Patient reports R calf pain that started during a walk in the hallways. Pain is now resolving. Upon visual assessment, no redness or swelling noted. Dr. Mayes made aware, ordered ultrasound. Patient now admitting to numbness to R lateral leg from
thigh to lateral calf. Quick neuro check preformed, muscular strength 5/5 throughout, admits to mild sensation loss to R lateral leg. Dr. 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 Information relayed to patient.
[2024-12-23 15:42] VITALS: BP 134/83
== END 2024-12-23 16:04 | disposition home or self-care (01) | DRG 853 ==
LOC: 2 SOUTH 20:46
PROVIDERS: Internal Medicine; Internal Medicine Gastroenterology; Nurse Practitioner; Nurse Practitioner Adult Health; Nurse Practitioner Family; Nurse Practitioner Gerontology; Radiology Diagnostic Radiology; ADMITTING PHYSICIAN Hospitalist; ATTENDING PHYSICIAN Internal Medicine; CONSULT PHYSICIAN Internal Medicine Gastroenterology; CONSULT PHYSICIAN Surgery; EMERGENCY PHYSICIAN Emergency Medicine; FAMILY PHYSICIAN Nurse Practitioner Primary Care
PROC: 0DJ08ZZ Inspection of Upper Intestinal Tract, Via Natural or Artificial Opening Endoscopic (ICD-10-PCS; 2024-12-16)
PROC: BF141ZZ Fluoroscopy of Gallbladder, Bile Ducts and Pancreatic Ducts using Low Osmolar Contrast (ICD-10-PCS; 2024-12-16)
PROC: 0F768DZ Dilation of Left Hepatic Duct with Intraluminal Device, Via Natural or Artificial Opening Endoscopic (ICD-10-PCS; 2024-12-16)
PROC: 0FT44ZZ Resection of Gallbladder, Percutaneous Endoscopic Approach (ICD-10-PCS; 2024-12-17)
PROC: 30233N1 Transfusion of Nonautologous Red Blood Cells into Peripheral Vein, Percutaneous Approach (ICD-10-PCS; 2024-12-18)
PROC: 0WCG0ZZ Extirpation of Matter from Peritoneal Cavity, Open Approach (ICD-10-PCS; 2024-12-18)
DX: A41.9 Sepsis, unspecified organism (principal); K65.9 Peritonitis, unspecified; K85.90 Acute pancreatitis without necrosis or infection, unspecified; K80.63 Calculus of gallbladder and bile duct with acute cholecystitis with obstruction; F11.20 Opioid dependence, uncomplicated; F31.30 Bipolar disorder, current episode depressed, mild or moderate severity, unspecified; K51.90 Ulcerative colitis, unspecified, without complications; E87.1 Hypo-osmolality and hyponatremia; D62 Acute posthemorrhagic anemia; K91.870 Postprocedural hematoma of a digestive system organ or structure following a digestive system procedure; K82.A1 Gangrene of gallbladder in cholecystitis; G89.29 Other chronic pain; F17.290 Nicotine dependence, other tobacco product, uncomplicated; K82.8 Other specified diseases of gallbladder; F43.10 Post-traumatic stress disorder, unspecified; M35.00 Sjogren syndrome, unspecified; F41.9 Anxiety disorder, unspecified; I10 Essential (primary) hypertension; E83.51 Hypocalcemia; K66.0 Peritoneal adhesions (postprocedural) (postinfection); R59.0 Localized enlarged lymph nodes; N40.0 Benign prostatic hyperplasia without lower urinary tract symptoms; R20.0 Anesthesia of skin; M25.551 Pain in right hip; I95.89 Other hypotension; Y83.8 Other surgical procedures as the cause of abnormal reaction of the patient, or of later complication, without mention of misadventure at the time of the procedure; G57.21 Lesion of femoral nerve, right lower limb; K59.00 Constipation, unspecified; K21.9 Gastro-esophageal reflux disease without esophagitis; E11.51 Type 2 diabetes mellitus with diabetic peripheral angiopathy without gangrene; Z87.11 Personal history of peptic ulcer disease; Z87.19 Personal history of other diseases of the digestive system; Z88.1 Allergy status to other antibiotic agents; Z91.012 Allergy to eggs; Z88.0 Allergy status to penicillin; Z88.8 Allergy status to other drugs, medicaments and biological substances; Z91.018 Allergy to other foods; Z86.0100 Personal history of colon polyps, unspecified
CPT/HCPCS: 74183; 74330; 76000; 76700; 78226; 80048; 80053; 81003; 81015; 82248; 82962; 83690; 83735; 84484; 85014; 85018; 85025; 85027; 85610; 85730; 86850; 86900; 86901; 86920; 87040; 88112; 88304; 88305; 93970; 96361; 96365; 96375; 97162; 97167; 97535; 99285; A4648; A9537; A9575; C1726; C1769; C2617; P9016

== ENCOUNTER → 2025-01-14 08:16 | Outpatient (REF) | payer MEDICARE, OTHER, SELFPAY ==
[2025-01-14 09:02] LABS: Hematocrit 40.6 % (39.0-52.0); Hemoglobin 13.4 g/dL (13.0-18.0); Mean Corp Hgb Conc. 33.0 g/dL (33.0-37.0); Mean Corpuscular Volume 91.4 fL (80.0-94.0); Nucleated Red Blood Cells % 0 % (-); Platelet Count 244 10^3/uL (130-400); Red Cell Dist. Width 14.0 % (11.5-14.5)
[2025-01-14 09:35] LABS: ALT (SGPT) 40 U/L (0-50); AST (SGOT) 33 U/L (17-59); Albumin 4.4 g/dl (3.5-5.0); Alkaline Phosphatase 229 U/L (38-126); Blood Urea Nitrogen 17 mg/dl (9-20); Calcium 9.4 mg/dl (8.4-10.2); Carbon Dioxide 24 mmol/L (22-30); Chloride 106 mmol/L (98-107); Glucose 102 mg/dl (70-99); HDL Cholesterol 96 mg/dl; LDL Cholesterol, Calculated 117 mg/dl; Potassium 4.9 mmol/L (3.5-5.1); Sodium 140 mmol/L (135-145); Total Protein 7.5 g/dl (6.3-8.2); Very Low Density Lipoprotein 15 mg/dl (0-30); eGFR > 60.00
[2025-01-14 09:48] LABS: Vitamin D, 25-OH*** 41.0 ng/mL (30-80)
[2025-01-14 10:01] LABS: PSA, Total - Screen 4.03 ng/ml (0.0-4.0)
[2025-01-14 10:21] LABS: Vitamin B12 371 pg/ml (239-931)
[2025-01-14 10:31] LABS: Glycohemoglobin (HgbA1c) 5.1 % (4.0-5.6)
== END ==
LOC: REG 08:16
PROVIDERS: ATTENDING PHYSICIAN Nurse Practitioner Primary Care
DX: R73.03 Prediabetes (principal); E78.2 Mixed hyperlipidemia; K83.01 Primary sclerosing cholangitis; M35.00 Sjogren syndrome, unspecified; E53.8 Deficiency of other specified B group vitamins; Z12.5 Encounter for screening for malignant neoplasm of prostate; E55.9 Vitamin D deficiency, unspecified; E03.8 Other specified hypothyroidism
CPT/HCPCS: 36415; 80053; 80061; 82306; 82607; 83036; 84443; 85025; G0103

== ENCOUNTER 2025-01-25 06:13 | Day surgery (SDC) | payer MEDICARE, OTHER, SELFPAY ==
[2025-01-25 09:14] VITALS: BMI 31.6
[2025-01-25 09:15] VITALS: BMI 31.6
[2025-01-25 09:26] VITALS: BP 167/95
[2025-01-25 11:30] VITALS: BP 109/75
[2025-01-25 11:45] VITALS: BP 129/95
[2025-01-25 12:00] VITALS: BP 129/86
== END 2025-01-25 12:23 | disposition home or self-care (01) ==
LOC: SDS 06:13
PROVIDERS: ATTENDING PHYSICIAN Internal Medicine Gastroenterology
DX: Z46.59 Encounter for fitting and adjustment of other gastrointestinal appliance and device (principal)
CPT/HCPCS: 43247

== ENCOUNTER → 2025-03-07 09:33 | Outpatient (REF) | payer MEDICARE, OTHER, SELFPAY ==
[2025-03-07 10:58] LABS: Hematocrit 44.0 % (39.0-52.0); Hemoglobin 14.2 g/dL (13.0-18.0); Mean Corp Hgb Conc. 32.3 g/dL (33.0-37.0); Mean Corpuscular Volume 87.5 fL (80.0-94.0); Nucleated Red Blood Cells % 0 % (-); Platelet Count 266 10^3/uL (130-400); Red Cell Dist. Width 13.2 % (11.5-14.5)
[2025-03-07 11:48] LABS: ALT (SGPT) 30 U/L (0-50); AST (SGOT) 29 U/L (17-59); Albumin 4.5 g/dl (3.5-5.0); Alkaline Phosphatase 203 U/L (38-126); Blood Urea Nitrogen 16 mg/dl (9-20); Calcium 9.1 mg/dl (8.4-10.2); Carbon Dioxide 26 mmol/L (22-30); Chloride 105 mmol/L (98-107); Glucose 95 mg/dl (70-99); Sodium 137 mmol/L (135-145); Total Protein 7.8 g/dl (6.3-8.2); eGFR > 60.00
[2025-03-07 11:57] LABS: Potassium 4.7 mmol/L (3.5-5.1)
== END ==
LOC: REG 09:33
PROVIDERS: ATTENDING PHYSICIAN Nurse Practitioner Primary Care
DX: E78.2 Mixed hyperlipidemia (principal); I10 Essential (primary) hypertension; Z12.5 Encounter for screening for malignant neoplasm of prostate; C61 Malignant neoplasm of prostate
CPT/HCPCS: 36415; 80053; 84153; 84154; 85025